=== PATIENT | male | born 1965 | race Caucasian/White ===

== ENCOUNTER 2022-08-19 13:00 | Oncology outpatient (recurring) (ONCR) | payer MEDICARE, SELFPAY ==
[2022-08-05 10:14] LABS: Basophils # 0.1 10^3/uL (0.0-0.1); Basophils % 1.1 %; Eosinophils # 0.1 10^3/uL (0.0-0.8); Eosinophils % 1.3 %; Hematocrit 37.2 % (42.0-52.0); Hemoglobin 11.4 g/dL (11.7-16.6); Lymphocytes # 1.5 10^3/uL (0.8-4.8); Lymphocytes % 31.3 %; Mean Corpuscular HGB Conc 30.6 g/dL (30.0-36.0); Mean Corpuscular Hemoglobin 23.2 pg (28.0-34.0); Mean Corpuscular Volume 75.8 fl (80-94); Mean Platelet Volume 9.6 fL (7.4-10.4); Monocytes # 0.5 10^3/uL (0.2-0.9); Neutrophils # 2.56 10^3/uL (1.8-7.7); Neutrophils % 55.1 %; Nucleated Red Blood Cells % 0 %; Platelet Count 309 10^3/cmm (130-400); Red Blood Count 4.91 10^6/uL (4.1-5.3); Red Cell Distribution Width 16.7 % (12.1-15.1); White Blood Count 4.6 10^3/uL (4.0-10.0)
[2022-08-05 10:40] LABS: Ferritin 9 ng/mL (30-400); Iron 25 ug/dL (59-158); Percent Saturation 6.7 % (20-50); Total Iron Binding Capacity 371 mcg/dl; Unsaturated Iron Binding 346 ug/dL (112-347)
[2022-08-10 12:42] VITALS: BP 145/92; PULSE 82; RESP 16; TEMP 36.3; O2SAT 98
[2022-08-10] MEDS: acetaminophen 325 mg Tablet 650 MG PO (12:55)
[2022-08-10] MEDS: sodium chloride 0.9% 250 ML 75 ML IV (12:55)
[2022-08-10] MEDS: diphenhydrAMINE 50 mg/mL SDV 1mL 25 MG IVP (12:58)
[2022-08-10] MEDS: iron sucrose 200 MG in sodium chloride 0.9% (100 ml) 100 ML 220 MG IV (13:06)
[2022-08-10 14:00] VITALS: BP 121/76; PULSE 71; RESP 16; TEMP 36.4; O2SAT 99
[2022-08-12 13:10] VITALS: BP 106/78; PULSE 78; RESP 18; TEMP 36.6; O2SAT 92
[2022-08-12] MEDS: iron sucrose 200 MG in sodium chloride 0.9% (100 ml) 100 ML 220 MG IV (13:20)
[2022-08-14] MEDS: sodium chloride 0.9% 250 ML 75 ML IV (11:11)
[2022-08-14] MEDS: iron sucrose 200 MG in sodium chloride 0.9% (100 ml) 100 ML 220 MG IV (11:12)
[2022-08-17 13:09] VITALS: BP 129/78; PULSE 70; RESP 16; TEMP 36.7; O2SAT 97
[2022-08-17] MEDS: sodium chloride 0.9% 250 ML 75 ML IV (13:16)
[2022-08-17] MEDS: acetaminophen 325 mg Tablet 650 MG PO (13:19)
[2022-08-17] MEDS: diphenhydrAMINE 50 mg/mL SDV 1mL 25 MG IVP (13:20)
[2022-08-17] MEDS: iron sucrose 200 MG in sodium chloride 0.9% (100 ml) 100 ML 220 MG IV (14:02)
[2022-08-17 14:50] VITALS: BP 145/76; PULSE 74; RESP 16; TEMP 36.7
[2022-08-19 13:30] VITALS: BP 139/80; PULSE 85; RESP 18; TEMP 36.8; O2SAT 98
[2022-08-19] MEDS: sodium chloride 0.9% 250 ML 50 ML IV (14:00)
[2022-08-19] MEDS: acetaminophen 325 mg Tablet 650 MG PO (14:01)
[2022-08-19] MEDS: iron sucrose 200 MG in sodium chloride 0.9% (100 ml) 100 ML 220 MG IV (14:02)
[2022-08-19 14:48] VITALS: BP 126/83; PULSE 72; RESP 16; TEMP 36.5; O2SAT 99
== END 2022-08-30 23:59 | disposition home or self-care (01) ==
PROVIDERS: PCP Internal Medicine Medical Oncology; Visit Provider Internal Medicine Medical Oncology
DX: D50.9 Iron deficiency anemia, unspecified (principal)
CPT/HCPCS: 82728; 83540; 83550; 85025; 96361; 96365; 96374; 96375; 99204; J1200; J1756; J7050

== ENCOUNTER → 2022-09-07 10:27 | Outpatient (BNVA) | payer MEDICARE, SELFPAY | PROVIDERS: PCP Family Medicine; Referring Provider Family Medicine; Visit Provider Anesthesiology Pain Medicine | DX: G89.29 Other chronic pain; M51.16 Intervertebral disc disorders with radiculopathy, lumbar region | CPT/HCPCS: 72110; 99204 ==

== ENCOUNTER 2022-09-16 08:52 | Oncology outpatient (recurring) (ONCR) | payer MEDICARE, SELFPAY ==
[2022-09-16 09:49] LABS: Basophils # 0.1 10^3/uL (0.0-0.1); Basophils % 1.1 %; Eosinophils # 0.1 10^3/uL (0.0-0.8); Eosinophils % 1.8 %; Hematocrit 44.8 % (42.0-52.0); Hemoglobin 14.1 g/dL (11.7-16.6); Lymphocytes # 1.7 10^3/uL (0.8-4.8); Lymphocytes % 37.1 %; Mean Corpuscular HGB Conc 31.5 g/dL (30.0-36.0); Mean Corpuscular Hemoglobin 25.1 pg (28.0-34.0); Mean Corpuscular Volume 79.9 fl (80-94); Monocytes # 0.4 10^3/uL (0.2-0.9); Monocytes % 9.8 %; Neutrophils # 2.24 10^3/uL (1.8-7.7); Neutrophils % 49.8 %; Nucleated Red Blood Cells % 0 %; Platelet Count 288 10^3/cmm (130-400); Red Blood Count 5.61 10^6/uL (4.1-5.3); Red Cell Distribution Width 20.5 % (12.1-15.1); White Blood Count 4.5 10^3/uL (4.0-10.0)
[2022-09-16 11:22] LABS: Alanine Aminotransferase 13 U/L (0-41); Albumin Level 4.4 g/dL (3.5-5.2); Alkaline Phosphatase 91 U/L (40-130); Anion Gap 14.3 (5-19); Aspartate Amino Transferase 14 U/L (0-40); Blood Urea Nitrogen 13 mg/dL (6-20); Calcium 9.1 mg/dL (8.5-10.5); Carbon Dioxide 27 mmol/L (22-29); Chloride 98 mmol/L (98-107); Ferritin 81 ng/mL (30-400); Globulin 2.7 g/dL (1.3-4.6); Glucose 111 mg/dL (65-115); Iron 92 ug/dL (59-158); Osmolality Calculated 281 mOsm/kg (285-295); Percent Saturation 26.9 % (20-50); Potassium 4.3 mmol/L (3.5-5.1); Sodium 135 mmol/L (136-145); Total Bilirubin 0.3 mg/dL (0.15-1.2); Total Iron Binding Capacity 342 mcg/dl; Total Protein 7.1 g/dL (6.6-8.7); Unsaturated Iron Binding 250 ug/dL (112-347)
== END 2022-09-30 23:59 | disposition home or self-care (01) ==
PROVIDERS: PCP Family Medicine; Visit Provider Internal Medicine Medical Oncology
DX: D50.9 Iron deficiency anemia, unspecified (principal); Z79.899 Other long term (current) drug therapy; Z98.84 Bariatric surgery status; G47.00 Insomnia, unspecified
CPT/HCPCS: 80053; 82728; 83540; 83550; 85025; 99214

== ENCOUNTER 2022-09-22 06:57 | Outpatient (CLI) | payer MEDICARE, SELFPAY ==
--- NOTE | 2022-09-22 07:15 | MR_ITS ---
WS: [id number] MRI LUMBAR SPINE NONCONTRAST HISTORY: M54.16 - Radiculopathy, lumbar region COMPARISON: Radiographs 09/07/2022 TECHNIQUE: Sagittal and axial multisequence imaging is submitted. Vertebral body numbering pattern will include 5 nonrib-bearing vertebral bodies. There is nonrib-bear ing vertebral body which will be labeled lumbarized S1. No prior MRIs are available to correlate prio r numbering pattern. This will be important to consider and review if further intervention is perform ed. Moderate increase in the lumbar lordosis. Mild LEFT curvature of the lumbar spine. Disc spaces are na rrowed and desiccated. No fracture. Osteophytic ridging around the vertebral bodies. Subchondral cystic changes along the endplates great est at L2 and L3. Conus terminates normally at L1-2 disc level. L1-L2: Mild annular disc bulging. Very mild foraminal narrowing. L2-L3: 5 mm retrolisthesis of L2 diffuse mild annular disc bulging with facet and ligamentum flavum a rthritis. Large posterior laminectomy defect. Moderate to severe bilateral subarticular recess stenos is with moderate bilateral foraminal stenosis. L3-L4: Osteophytic ridging, annular disc bulging and large posterior laminectomy defect. Marked facet arthritis. No central stenosis. Moderate bilateral subarticular recess and foraminal stenosis. Sligh tly greater stenosis involving the RIGHT foramina. L4-L5: Annular disc bulging with osteophytic ridging. Large posterior laminectomy defect. No central stenosis. Mild bilateral subarticular recess and foraminal stenosis. L5-S1: Mild annular disc bulging and osteophytic ridging. Large posterior laminectomy defect. Mild blanco barticular recess and foraminal stenosis. S1-S2: Sacralized S1 vertebral body. No foraminal stenosis. Large posterior laminectomy defect contin ues into the sacrum. Postsurgical changes are noted in the paravertebral soft tissues and muscles posterior to the lumbar spine. Clumping of the nerve roots in the peripheral the thecal sac beginning at the L3-4 level. MR/MR lumbar spine wo con* [id number] IMPRESSION: 1. Vertebral body numbering pattern includes 5 lumbar vertebral bodies with th e first sacral vertebral body lumbarized. No prior studies to correlate prior n umbering pattern. 2. Advanced spondylitic changes throughout the lumbar spine. 3. Large posterior laminectomy defects extending from L2-3 through S1. 4. Moderate to severe bilateral subarticular recess stenosis and moderate fora luke stenosis at L2-3. 5. Moderate bilateral subarticular recess and foraminal stenosis at L3-4, slig htly greater on the RIGHT. 6. Mild bilateral subarticular recess and foraminal stenosis at L4-5 and L5-S1 . 7. Marked facet joint arthritis throughout the lumbar spine, most significant at L3-4 and L4-5.
== END 2022-09-22 06:58 | disposition home or self-care (01) ==
PROVIDERS: PCP Family Medicine; Visit Provider Anesthesiology Pain Medicine
DX: M54.16 Radiculopathy, lumbar region (principal); M47.816 Spondylosis without myelopathy or radiculopathy, lumbar region; M48.07 Spinal stenosis, lumbosacral region
CPT/HCPCS: 72110; 72148; 99204

== ENCOUNTER → 2022-10-08 09:38 | Outpatient (BNVA) | payer MEDICARE, SELFPAY | PROVIDERS: PCP Family Medicine; Visit Provider Anesthesiology Pain Medicine | DX: G89.29 Other chronic pain (principal); M51.16 Intervertebral disc disorders with radiculopathy, lumbar region | CPT/HCPCS: 99215 ==

== ENCOUNTER → 2022-10-15 09:22 | Outpatient (BNVA) | payer MEDICARE, SELFPAY | PROVIDERS: PCP Family Medicine | DX: E61.1 Iron deficiency (principal) | CPT/HCPCS: 80053; 82728; 83550 ==

== ENCOUNTER → 2022-10-22 08:41 | Outpatient (BNVA) | payer MEDICARE, SELFPAY | PROVIDERS: PCP Family Medicine; Referring Provider Family Medicine; Visit Provider Orthopaedic Surgery | DX: M51.16 Intervertebral disc disorders with radiculopathy, lumbar region (principal) | CPT/HCPCS: 72120; 99204 ==

== ENCOUNTER → 2022-10-23 09:48 | Outpatient (BNVA) | payer MEDICARE, SELFPAY | PROVIDERS: PCP Family Medicine; Visit Provider Nurse Practitioner | DX: D50.8 Other iron deficiency anemias (principal) | CPT/HCPCS: 80053; 82728; 83550; 85025 ==

== ENCOUNTER 2022-11-17 08:48 | Oncology outpatient (recurring) (ONCR) | payer MEDICARE, SELFPAY ==
[2022-11-17 09:06] VITALS: BP 168/93; PULSE 92; RESP 18; TEMP 36.8; O2SAT 96
[2022-11-17 09:21] LABS: Basophils % 0.7 %; Eosinophils # 0.1 10^3/uL (0.0-0.8); Eosinophils % 0.9 %; Hematocrit 44.2 % (42.0-52.0); Hemoglobin 14.5 g/dL (11.7-16.6); Lymphocytes # 1.2 10^3/uL (0.8-4.8); Lymphocytes % 21.2 %; Mean Corpuscular HGB Conc 32.8 g/dL (30.0-36.0); Mean Corpuscular Hemoglobin 27.1 pg (28.0-34.0); Mean Corpuscular Volume 82.6 fl (80-94); Mean Platelet Volume 9.1 fL (7.4-10.4); Monocytes # 0.6 10^3/uL (0.2-0.9); Monocytes % 10.2 %; Neutrophils # 3.66 10^3/uL (1.8-7.7); Neutrophils % 66.8 %; Nucleated Red Blood Cells % 0 %; Platelet Count 287 10^3/cmm (130-400); Red Blood Count 5.35 10^6/uL (4.1-5.3); Red Cell Distribution Width 15.7 % (12.1-15.1); White Blood Count 5.5 10^3/uL (4.0-10.0)
[2022-11-17 09:42] LABS: Alanine Aminotransferase 13 U/L (0-41); Albumin Level 4.1 g/dL (3.5-5.2); Alkaline Phosphatase 102 U/L (40-130); Aspartate Amino Transferase 13 U/L (0-40); Blood Urea Nitrogen 12 mg/dL (6-20); Calcium 9.1 mg/dL (8.5-10.5); Carbon Dioxide 27 mmol/L (22-29); Chloride 100 mmol/L (98-107); Ferritin 22 ng/mL (30-400); Globulin 2.9 g/dL (1.3-4.6); Glucose 124 mg/dL (65-115); Iron 53 ug/dL (59-158); Osmolality Calculated 287 mOsm/kg (285-295); Percent Saturation 15.5 % (20-50); Sodium 138 mmol/L (136-145); Total Bilirubin 0.3 mg/dL (0.15-1.2); Total Iron Binding Capacity 340 mcg/dl; Unsaturated Iron Binding 287 ug/dL (112-347)
[2022-11-17 09:47] LABS: Anion Gap 14.9 (5-19); Potassium 3.9 mmol/L (3.5-5.1)
[2022-11-18 09:12] LABS: Estmated Average Glucose 148; Hemoglobin A1C 6.8 % (4.0-6.0)
== END 2022-11-30 23:59 | disposition home or self-care (01) ==
LOC: ONCMED 08:49
PROVIDERS: PCP Family Medicine; Visit Provider Internal Medicine Medical Oncology
DX: D50.9 Iron deficiency anemia, unspecified (principal); Z79.899 Other long term (current) drug therapy; Z98.84 Bariatric surgery status; K90.89 Other intestinal malabsorption
CPT/HCPCS: 36415; 80053; 82728; 83036; 83540; 83550; 85025; 99214

== ENCOUNTER 2022-12-07 13:30 | Oncology outpatient (recurring) (ONCR) | payer MEDICARE, SELFPAY ==
[2022-12-02 14:52] VITALS: BP 132/87; PULSE 81; RESP 16; TEMP 36.7; O2SAT 99
[2022-12-02] MEDS: iron sucrose 200 MG in sodium chloride 0.9% (100 ml) 100 ML 220 MG IV (15:09)
[2022-12-02 15:53] VITALS: BP 128/77; PULSE 80; TEMP 36.4; O2SAT 98
[2022-12-02 15:59] VITALS: BP 131/77; PULSE 70; TEMP 36.4; O2SAT 99
[2022-12-04 09:42] VITALS: BMI 35.3
[2022-12-04 09:45] VITALS: BP 135/86; PULSE 82; RESP 18; TEMP 36.3; O2SAT 99
[2022-12-04] MEDS: sodium chloride 0.9% 250 ML IV (10:25)
[2022-12-04] MEDS: acetaminophen 325 mg Tablet 650 MG PO (10:25)
[2022-12-04] MEDS: diphenhydrAMINE 25 mg Capsule PO (10:25)
[2022-12-04] MEDS: iron sucrose 200 MG in sodium chloride 0.9% (100 ml) 100 ML 220 MG IV (10:33)
[2022-12-04 11:10] VITALS: BP 144/84; PULSE 71; RESP 18; TEMP 35.9; O2SAT 98
[2022-12-07 13:24] VITALS: BP 132/86; PULSE 94; RESP 18; TEMP 36.4; O2SAT 98
[2022-12-07] MEDS: sodium chloride 0.9% 250 ML 75 ML IV (13:59)
[2022-12-07] MEDS: iron sucrose 200 MG in sodium chloride 0.9% (100 ml) 100 ML 220 MG IV (14:02)
[2022-12-07 14:43] VITALS: BP 129/79; PULSE 86; RESP 18; TEMP 36.7; O2SAT 98
== END 2022-12-31 23:59 | disposition home or self-care (01) ==
PROVIDERS: PCP Family Medicine; Visit Provider Internal Medicine Medical Oncology
DX: D50.8 Other iron deficiency anemias (principal)
CPT/HCPCS: 96365; J1756; J7050

== ENCOUNTER 2022-12-09 14:16 | Inpatient (IN) | payer MEDICARE, SELFPAY ==
[2022-12-08 08:45] VITALS: BMI 35.2
[2022-12-09] VITALS (16 sets, daily range): BP systolic 84–145; BP diastolic 62–94; PULSE 81–103; RESP 10–21; TEMP 36.1–36.4; O2SAT 89–99
--- NOTE | 2022-12-09 | XR_ITS ---
WS: [id number]-ARM RADIOGRAPHS LUMBAR SPINE; 406 IMAGES HISTORY: SURGICAL PROCEDURE COMPARISON: None available. Imaging submitted is nondiagnostic. Intraoperative imaging during lumbar spine fusion. IMPRESSION: Intraoperative imaging provided during lumbar fusion.
[2022-12-09] MEDS: sodium chloride 0.9% 1,000 ML 30 ML IV (11:53)
--- NOTE | 2022-12-09 12:37 | ANES.PREANE2 ---
Pre-Anesthetic Assessment Height/Weight: Height 1.85 m Weight 121.109 kg Temp Pulse Resp BP Pulse Ox O2 Del Method 97.6 F 81 18 145/94 98 Room Air 12/09/22 11:38 12/09/22 11:38 12/09/22 11:38 12/09/22 11:38 12/09/22 11:38 12/09/22 11:38 Preop Diagnosis: DDD lumbar Operation Date: 12/09/22 13:20 Proposed Procedures p T10- Pelvis fusion L5/S1 PLIF open SI fusion:[id number] X 2,[id number] X 3,[id number],74832,33150,24602,M54.9,G89.29(Not Applicable) - Keron Monzon, Familial anesthetic complications: None Was Beta Anup taken within 24 hours: N/A Was Clonidine taken within 24 hours: N/A Last intake: Intake Last Liquid Date 12/08/22 Last Liquid Time 22:00 Last Solid Date 12/08/22 Last Solid Time 22:00 Social No alcohol and No tobacco Exam alert, oriented x 3, clear to auscultation bilaterally and regular rate & rhythm Airway Mallampati: Class III Dentition: chipped Pulmonary Sleep Apnea CV/HEM Anemia and Hypertension GI hx gastric bypass Metabolic Diabetes Mellitus Anesthetic Plan ASA status: 3 Anesthesia: General Risk of > 500 ml blood loss (7ml/kg in children): Yes, adequate IV access and fluids planned Medications/Allergies Home Medications Medication Instructions Recorded Confirmed Last Taken Type bupropion HCl 300 mg 24 hr tablet, 300 mg PO QAM 08/05/22 12/09/22 12/08/22 History extended release cyanocobalamin (vitamin B-12) 1,000 mcg IM .COMPLEX 08/05/22 12/08/22 11/28/22 History 1,000 mcg/mL injection solution (Dodex) duloxetine 60 mg capsule,delayed 60 mg PO DAILY 08/05/22 12/08/22 12/07/22 History release sprinkle furosemide 20 mg tablet 20 mg PO DAILY 08/05/22 12/08/22 12/07/22 History metformin 1,000 mg tablet 1,000 mg PO BID 08/05/22 12/09/22 12/08/22 08:00 History rosuvastatin 10 mg tablet 10 mg PO DAILY 08/05/22 12/09/2223 History verapamil 180 mg 24 hr 180 mg PO DAILY 08/05/22 12/09/22 12/08/22 History capsule,extended release dflrrjct-qmctgypo-locp 45 mg-folic 1 cap PO DAILY 08/13/22 12/08/22 11/28/22 History acid 800 mcg-vit K 120 mcg capsule (Bariatric Multivitamins) trazodone 50 mg tablet 100 mg PO DAILY #60 tabs 09/16/22 12/09/22 12/08/22 Rx valsartan 320 1 tab PO DAILY 11/25/22 12/09/22 12/08/22 History mg-hydrochlorothiazide 12.5 mg tablet Allergies Allergy/AdvReac Type Severity Reaction Status Date / Time NSAIDS (Non-Steroidal Allergy Unknown Verified 11/25/22 13:40 Anti-Inflamma Penicillins Allergy ALGY-Swell Verified 11/25/22 13:40 Lip/Tongue/Throat Current Medications Generic Name Dose Route Start Last Admin Trade Name Freq PRN Reason Stop Dose Admin Sodium Chloride 1,000 mls @ 30 mls/hr 12/09/22 11:30 12/09/22 11:53 Sodium Chloride 0.9% IV 12/10/22 11:29 30 mls/hr .Q24H BRYAN Administration PFSH Anesthesia Medical History (Updated 11/25/22 @ 13:50 by Abhi Davis NP) Anxiety Anxiety and depression Chronic back pain Degenerative arthritis Degenerative joint disease of spine Essential hypertension History of anemia due to vitamin B12 deficiency History of bariatric surgery History of iron deficiency History of meningioma History of nephrolithiasis Hx of renal artery stenosis Hypertension Insomnia Moderate recurrent major depression Obstructive sleep apnea Tinnitus Type 2 diabetes mellitus Surgical History History of back surgery x 2 - Lower lumbar History of bilateral knee replacement History of cystoscopy 05/26/17 History of Rey-en-Y gastric bypass Hx of colonoscopy with polypectomy 09/26/15, 11/11/17, Hx of excision of lamina of lumbar vertebra for decompression of spinal cord Hx of lithotripsy 05/26/17 S/p bilateral carpal tunnel release Family History Father Cancer esophageal Mother Cancer Lung Grandfather Cancer Maternal-prostate Other Diabetes Hypertension Denies family history of CAD (coronary artery disease) Clotting disorder Dementia Hyperlipidemia Psychiatric illness Chronic kidney disease (CKD) Suicide Anesthesia complication Bleeding disorder Lung disease Stroke Social History Smoking and tobacco status: former smoker Quit status (tobacco): has quit using tobacco Former quit date comment: smoked x 20 years Alcohol intake: former Former alcohol use details: Prior history of heavy alcohol use. He quit drinking at least 30 years ago Substance/Drug Use: never Lives independently: Yes Marital status: Number of children: 3 Current occupational status: disabled Special erika needs: No Agree to transfusion: Yes Data Anesthesia Cardiac Studies: No Data to Display
[2022-12-09] MEDS: vancomycin 1,000 MG in sodium chloride 0.9% 250 ML 250 MG IV (12:57)
[2022-12-09] MEDS: midazolam 1 mg/mL INJ 2 mL 2 MG IVP (13:20)
--- NOTE | 2022-12-09 14:03 | PM.HP ---
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 He states he also weighed over 400+ and wend to get out of a car and was unable to stand up straight. Following this he underwent a diskectomy. He Chief Complaint: low back pain Onset: years Duration: Characteristics: poor balance, burning Severity: /10 Location: low back Radiating symptoms: posterior lower extremities Aggravating factors: standing or sitting for long periods Alleviating factors: leaning forward, rest, Neuro deficits: denies numbness, tingling, weakness, incontinence of bowel/bladder, saddle anesthesia. Prior tx: diskectomy Review of Systems General: Reports: 10 or more systems reviewed and unremarkable except in HPI and below Const: Denies: fever(s) or chills Eyes: Denies: change in vision or blurry vision ENMT: Reports: tinnitus; Denies: hoarseness Card: Denies: chest pain, palpitations or dyspnea on exertion Resp: Denies: dyspnea, productive cough, non-productive cough or wheezing GI: Denies: abdominal pain, nausea, vomiting, diarrhea or constipation Musc: Reports: back pain; Denies: neck pain or joint pain Skin/Breast: Denies: rash or new lesions Neuro: Denies: headache(s), numbness in extremities or weakness in extremities Psych: Reports: anxiety; Denies: depression Medications/Allergies Home Medications Medication Instructions Recorded Confirmed Last Taken Type bupropion HCl 300 mg 24 hr tablet, 300 mg PO QAM 08/05/22 12/09/22 12/08/22 History extended release cyanocobalamin (vitamin B-12) 1,000 mcg IM .COMPLEX 08/05/22 12/08/22 11/28/22 History 1,000 mcg/mL injection solution (Dodex) duloxetine 60 mg capsule,delayed 60 mg PO DAILY 08/05/22 12/08/22 12/07/22 History release sprinkle furosemide 20 mg tablet 20 mg PO DAILY 08/05/22 12/08/22 12/07/22 History metformin 1,000 mg tablet 1,000 mg PO BID 08/05/22 12/09/22 12/08/22 08:00 History rosuvastatin 10 mg tablet 10 mg PO DAILY 08/05/22 12/09/22 12/08/22 History verapamil 180 mg 24 hr 180 mg PO DAILY 08/05/22 12/09/22 12/08/22 History capsule,extended release ngvhrufd-kzhhhqif-zvdn 45 mg-folic 1 cap PO DAILY 08/13/22 12/08/22 11/28/22 History acid 800 mcg-vit K 120 mcg capsule (Bariatric Multivitamins) trazodone 50 mg tablet 100 mg PO DAILY #60 tabs 09/16/22 12/09/22 12/08/22 Rx valsartan 320 1 tab PO DAILY 11/25/22 12/09/22 12/08/22 History mg-hydrochlorothiazide 12.5 mg tablet Allergies Allergy/AdvReac Type Severity Reaction Status Date / Time NSAIDS (Non-Steroidal Allergy Unknown Verified 11/25/22 13:40 Anti-Inflamma Penicillins Allergy ALGY-Swell Verified 11/25/22 13:40 Lip/Tongue/Throat PFSH Acute PFSH: Medical History (Updated 11/25/22 @ 13:50 by Abhi Davis NP) Anxiety Anxiety and depression Chronic back pain Degenerative arthritis Degenerative joint disease of spine Essential hypertension History of anemia due to vitamin B12 deficiency History of bariatric surgery History of iron deficiency History of meningioma History of nephrolithiasis Hx of renal artery stenosis Hypertension Insomnia Moderate recurrent major depression Obstructive sleep apnea Tinnitus Type 2 diabetes mellitus Surgical History History of back surgery x 2 - Lower lumbar History of bilateral knee replacement History of cystoscopy 05/26/17 History of Rey-en-Y gastric bypass Hx of colonoscopy with polypectomy 09/26/15, 11/11/17, Hx of excision of lamina of lumbar vertebra for decompression of spinal cord Hx of lithotripsy 05/26/17 S/p bilateral carpal tunnel release Family History Father Cancer esophageal Mother Cancer Lung Grandfather Cancer Maternal-prostate Other Diabetes Hypertension Denies family history of CAD (coronary artery disease) Clotting disorder Dementia Hyperlipidemia Psychiatric illness Chronic kidney disease (CKD) Suicide Anesthesia complication Bleeding disorder Lung disease Stroke Social History Smoking and tobacco status: former smoker Quit status (tobacco): has quit using tobacco Former quit date comment: smoked x 20 years Alcohol intake: former Former alcohol use details: Prior history of heavy alcohol use. He quit drinking at least 30 years ago Substance/Drug Use: never Lives independently: Yes Marital status: Number of children: 3 Current occupational status: disabled Special erika needs: No Agree to transfusion: Yes Vitals/I&O/Wt Last Vital Signs Temp 97.6 F 12/09/22 11:38 Pulse 81 12/09/22 11:38 Resp 18 12/09/22 11:38 BP 145/94 12/09/22 11:38 Pulse Ox 98 12/09/22 11:38 O2 Del Method Room Air 12/09/22 11:38 Weight last 48 hrs Weight 267 lb Physical Exam Narrative: EXAM NARRATIVE: CONSTITUTIONAL: T his is a normal ap pearing and in no acute distress. PS YCH: The patient i s oriented to pers on, place and time . SKIN: The skin i s of normal color and texture. NEURO : Patient is neuro vascularly intact. MUSCULOSKELETAL / EXTREMITIES: A&P Assessment and plan (1) Lumbar disc disease with radiculopathy: [id number] fusion Attestations Medical Necessity Statement*: failed conservative tx Coding Level of Care Code Acute Code for [facility] Fwd Diagnoses Lumbar disc disease with radiculopathy M51.16
[2022-12-09] MEDS: lidocaine-epi 1% 20 mL INJ INJECTION (14:55)
[2022-12-09 16:10] LABS: ABG PCO2 41.4 mmHg (35-45); Alveolar-Arterial Oxygen Gradi 13.3 mmHg (5-10); Arterial Blood Gas Hematocrit 38.6 % (42-52); Base Excess ABG 0.6 mmol/L (-2.0-2.0); Blood Gas Sample Type Arterial; Carboxyhemoglobin 0.8 %THgb (0.4-20.1); HCO3 ABG 25.6 mmol/L (22-26); HGB O2 Sat 97.7 % (95-100); Ionized Calcium Level - ABG 1.1 mmol/L (1.1-1.4); Methemoglobin 0.6 % (0.4-1.5); Oxygen Device VENT; Oxygen Saturation ABG 99.1; Potassium Level - ABG 4.2 mmol/L (3.5-5.0); Total Hemoglobin 12.6 g/dL (14-18)
[2022-12-09] MEDS: vancomycin 1,000 MG SDV 1000 MG XX (16:23)
[2022-12-09] MEDS: heparin, porcine 1,000 unit/mL INJ 10 mL 4000 UNIT INJECTION (16:50)
[2022-12-09 17:09] LABS: Blood Gas Sample Site ALINE
--- NOTE | 2022-12-09 18:04 | PM.OP ---
Operative Report Date of procedure: December 09, 2022 Pre-op diagnosis: Preop Diagnosis degenerative disk disease; failed back surgery Post-op diagnosis: same Surgeon: Keron Monzon Asset Protection Agent: Tigre Pinto Estimated blood loss (mL): 1,500 Procedure: 1.? T10 - pelvis posterior spine fusion 2.? T10 - S1 posterior instrumentation 3. Lumbopelvic instrumentation 4. Right open sacral iliac fusion 5. Left open sacral iliac fusion 6.? use of computer navigation sterotactic for spine 7.? bone marrow aspiration right iliac crest 8.? use of allograft Patient was brought to the operative suite after undergoing anesthesia was placed in the prone position.? All areas impingement well-padded.? Patient was then prepped and draped in normal sterile fashion.? Skin incision made from T10 down to S1.? Subperiosteal dissection was made out to the transverse processes from T10-L5.? And out to the sacral ala.? This was done bilaterally. There was a significant amount of scar tissue. The dissection on the right side around the right L1-2 facet during dissection there was a small dural tear and the scar tissue. At the end of the case this was repaired by suturing the scar tissue back together and placing a fat graft over it. At the end a Valsalva maneuver was made and there was no evidence of any leak. DuraGen was placed over this as well. Attention was then brought to drawing the bone marrow aspirate from the right iliac crest.? This was done using the bone marrow aspiration kit.? The awl was inserted and then every millimeter the needle was pulled out bone marrow was aspirated 20 cc were used this was then mixed with the ostial amp bone graft that was used at the end of the case. Next attention was brought to attaching the computer navigation.? This was done by placing 2 pins in the right iliac crest.? These pins will be later removed at the end of the case.? The fiducial was attached to these 2 pins.? The C-arm was then brought in and spun around the patient.? The information from serum was then loaded in the computer for later use with computer navigation. Next attention was brought to placing the screws.? This was done by using the gearshift which was linked to the computer navigation followed by the pedicle feeler.? Followed by placing the screw length to the computer navigation.? Screws were placed screws were placed at T10 bilaterally, T11 bilaterally, T12 bilaterally, L1 bilaterally, L2 bilaterally, L3 bilaterally, L4 bilaterally, L5 bilaterally, and S1. Next attention was brought to placing the iliac screws. This again was done with computer navigation using the Poll Everywhere link under computer navigation was passed through the sacral ala into the SI joint and into the iliac crest. This was done bilaterally. Next the pedicle feeler was used. Followed by using the computer navigated tap. Followed by placement of the 100 mm screw linked to computer navigation. Screws were placed bilaterally. Next attention was brought to doing the open SI joint fusion. This was done by using the gearshift probe to cross the SI joint above the iliac screw. Once across the joint than the wire was placed in this hole. And then the drill was used. Bone graft was then placed into the hole and in the SI joint. And then the sacroiliac screw was placed across the joint. This was done on both the right and the left side. Next attention was brought to placing the rods.? The rods were attached from T10-S1. The cindy was also attached to the iliac screws attaching the lumbopelvic fixation.The rods were locked distally and distracted in order to facilitate reducing the fracture.? Rods were all locked into position with the setscrews.? This was done bilaterally. Next tension was brought to decorticating the transverse processes of T10T11 T12-L1 L2 L3-L4-L5 and sacral ala bilaterally.? Then all ostial amp bone graft was then packed into the gutters bilaterally.? The drain was placed and wound was closed in layered fashion with 0 Vicryl closing the thoracolumbar fascia 2-0 Vicryl closing the skin and Monocryl closing the skin.? Sterile dressings were applied patient was transferred to the PACU in stable condition.
--- NOTE | 2022-12-09 18:53 | ANE.PACU2 ---
Inpatient post-anesthesia follow up: Airway intact: Yes Vital signs: Temperature 97.0 F Pulse Rate 89 Respiratory Rate 17 Blood Pressure 107/66 Pulse Oximetry 98 Oxygen Delivery Me thod Simple Mask Oxygen Flow Rate 6 Fraction of Inspir ed Oxygen Hydration adequate: Yes Nausea and vomiting: No Pain level: 1 Mental status: Baseline
[2022-12-09] MEDS: HYDROmorphone 1 mg/mL INJ 1 mL 0.5 MG IVP (19:10)
[2022-12-09] MEDS: lactated ringers 1,000 ML 90 ML IV (19:57)
[2022-12-09] MEDS: oxyCODONE 20 mg ER (12 HR) Tablet PO (20:18)
[2022-12-09] MEDS: docusate sodium 100 mg Capsule PO (20:18)
[2022-12-09] MEDS: ondansetron 2 mg/ML SDV 2 mL 4 MG IVP (20:32)
[2022-12-09] MEDS: ketorolac 30 mg/mL INJ IVP (20:32)
[2022-12-09 21:40] LABS: Glomerular Filtration Rate 99.6 mL/min (90-130)
[2022-12-10] VITALS (12 sets, daily range): BP systolic 105–131; BP diastolic 67–79; PULSE 93–116; RESP 16–20; TEMP 36.4–37.5; O2SAT 91–96
[2022-12-10] MEDS: acetaminophen 325 mg Tablet 650 MG PO ×2 (00:07→20:11)
[2022-12-10] MEDS: vancomycin 1,750 MG/350 ML PIGGYBACK 233.33 MG IV (00:08)
[2022-12-10] MEDS: morphine 4 mg/mL SDV 1 mL 2 MG IVP (00:24)
[2022-12-10] MEDS: HYDROcodone-acetaminophen 10-325 mg Tablet PO ×3 (02:17→15:30)
[2022-12-10 05:00] LABS: Hematocrit 32.7 % (42.0-52.0); Hemoglobin 10.7 g/dL (11.7-16.6)
[2022-12-10] MEDS: buPROPion XL (24 HR) 300 mg Tablet PO (05:16)
[2022-12-10 05:32] LABS: Glucose Point of Care 119 mg/dL (70-110)
[2022-12-10] MEDS: ondansetron 2 mg/ML SDV 2 mL 4 MG IVP (05:34)
[2022-12-10] MEDS: lactated ringers 1,000 ML 90 ML IV ×2 (07:18→18:47)
--- NOTE | 2022-12-10 07:39 | PM.PN ---
Subjective Subjective: POD 1 Patient standing in the room as staff is changing his linens. He reports back pain. Reports mild headache. Denies chest pain or shortness of breath. Vitals/I&O/Wt Last Vital Signs Temp 97.9 F 12/10/22 06:00 Pulse 102 H 12/10/22 06:00 Resp 17 12/10/22 06:00 BP 105/67 12/10/22 06:00 Pulse Ox 96 12/10/22 06:00 O2 Del Method Room Air 12/10/22 06:00 O2 Flow Rate 2 12/09/22 21:37 12/09/22 12/10/22 12/10/22 22:59 06:59 14:59 Intake Total 1407.5 / 1657.5 830 / 2487.5 1000 / 1000 Output Total 2960 / 2960 610 / 3570 Balance -1552.5 / -1302.5 220 / -1082.5 1000 / 1000 Weight last 48 hrs Weight 267 lb Physical Exam Narrative: Patient presents alert and oriented x3 with a good general appearance normal mood and affect. Normal coordination normal stability. Mild tenderness around the incisional site with the incision appear to be clean and dry with Hemovac intact. No signs of erythema or drainage. No signs of infection. Patient denies any fevers or chills. 5/5 motor strength both lower extremities with negative straight leg raise bilaterally. Calves are supple no medial thigh tenderness. Pulses are 2+ at the dorsalis pedis and posterior tibial region. Good capillary refill throughout normal sensation light touch both lower extremities. Urinary Catheter Management: Leyva Latex: Cath Placed During This Visit: yes Reason for Continuing Indwelling Catheter: Perioperative Use in Selected Surgeries Urinary Catheter Date of Insertion: 12/09/22 Urinary Catheter Time of Insertion: 14:15 Data 12/10/22 04:50 12/09/22 21:06 A&P Assessment and plan (1) S/P spinal fusion: Reported 1020 mL output from Hemovac therefore will remove the suction from the Hemovac take to gravity. Due to the incidental durotomy we will keep him flat and hold physical therapy today. Encourage incentive spirometer for pulmonary toilet. Repeat H&H in the AM. (2) Incidental durotomy: Attestations Medical Necessity Statement*: Hold until medically stable Coding Level of Care Code Acute Code for [facility] Fwd Diagnoses S/P spinal fusion Z98.1 Incidental durotomy G97.41
[2022-12-10] MEDS: duloxetine 60 mg Capsule PO (09:36)
[2022-12-10] MEDS: FUROsemide 20 mg Tablet PO (09:36)
[2022-12-10] MEDS: verapamil ER 180 mg Tablet PO (09:36)
[2022-12-10] MEDS: metformin 500 mg Tablet 1000 MG PO ×2 (09:36→17:56)
[2022-12-10] MEDS: atorvastatin 40 mg Tablet PO (09:36)
[2022-12-10] MEDS: hydroCHLOROthiazide 25 mg Tablet 12.5 MG PO (09:37)
[2022-12-10] MEDS: docusate sodium 100 mg Capsule PO ×2 (09:37→17:56)
[2022-12-10] MEDS: losartan 50 mg Tablet 100 MG PO (09:38)
[2022-12-10] MEDS: ketorolac 30 mg/mL INJ IVP (09:41)
[2022-12-10] MEDS: oxyCODONE 20 mg ER (12 HR) Tablet PO ×2 (10:36→20:11)
--- NOTE | 2022-12-10 10:48 | PC.CHAP ---
Pastoral Care Encounter/Spiritual Assessment Type of Contact [] Declined aircraft avionics technician visit [] Patient/Family/Request visit [] Outpatient visit [] Follow-up visit [] Physician referral [] Code/Alert [x] Routine visit [] Staff referral [] Actively dying [] Patient sleeping [] Family support [] [] Out of room [] Palliative care [] [x] Receiving care in room [] Pre-surgical visit [] Trauma [] Long length of stay [] ICU visit [] Other: Relational/Emotional Strength [x] Patient feels connected with others/family/visitors/staff [] Distress [] Loneliness/isolation [] Abandonment Spirituality of Patient [x] Person of Yeimi [] Attends Restorationism of their Yeimi [x] Believes in Prayer [] Reads Bible or Restorationist materials [] There are Spiritual issues to be addressed Steam And Power Superintendent Interventions [x] Prayer [x] Active listening [x] Non-anxious presence [x] Spiritual/emotional support [] Crisis/trauma care [x] Spiritual counseling [] Bereavement support [] Provided bereavement packet [] Provided Bible/devotional materials [] Provided toy/stuffed animal, coloring book to patient or family member [] Provided Communion [] Anointing/[place] [] Salvation [x] Completed spiritual assessment [] Other: Impact on Illness or Injury [] Angry [] Fearful [] Anxious [] Often cries [] Exhaustion [] Unable to work [] Unable to attend adventism [] Unable to walk/stand [] Unable to read [] Unable to drive [] Unable to eat/drink [] Unable to sleep [] Unable to be with family [] Patient intubated [] Other: Summary surgery on neck had some problems back to e care of breathing because of surgery +1 well go home at some point Time spent with patient 10 mins
[2022-12-10] MEDS: vancomycin 1,750 MG/350 ML PIGGYBACK 175 MG IV (13:55)
[2022-12-10] MEDS: trazodone 50 mg Tablet 100 MG PO (20:11)
[2022-12-11] VITALS (13 sets, daily range): BP systolic 102–130; BP diastolic 63–85; PULSE 88–131; RESP 16–18; TEMP 36.6–37.8; O2SAT 90–96
[2022-12-11] MEDS: morphine 4 mg/mL SDV 1 mL 2 MG IVP (02:31)
[2022-12-11] MEDS: buPROPion XL (24 HR) 300 mg Tablet PO (06:16)
[2022-12-11 06:32] LABS: Hematocrit 27.8 % (42.0-52.0); Hemoglobin 8.9 g/dL (11.7-16.6)
[2022-12-11] MEDS: lactated ringers 1,000 ML 90 ML IV ×2 (06:45→18:27)
--- NOTE | 2022-12-11 07:08 | PM.PN ---
Subjective Subjective: Patient is postop day #2 from a T10 to pelvis fusion. Pain is controlled. Patient said he had a headache last night but is not any different than the headaches he was having before surgery. At this point we will get him up with physical therapy. Vitals/I&O/Wt Last Vital Signs Temp 100.0 F H 12/11/22 04:00 Pulse 115 H 12/11/22 04:00 Resp 16 12/11/22 04:00 BP 120/75 12/11/22 04:00 Pulse Ox 92 12/11/22 04:00 O2 Del Method Room Air 12/11/22 04:00 O2 Flow Rate 2 12/09/22 21:37 12/10/22 12/11/22 12/11/22 22:59 06:59 14:59 Intake Total 1350 / 3070 1000 / 4070 Output Total 1075 / 1950 550 / 2500 Balance 275 / 1120 450 / 1570 Physical Exam Narrative: Patient sitting up comfortably in bed. Patient had 200 cc out of drain but were pulled today. Urinary Catheter Management: Leyva Latex: Cath Placed During This Visit: yes Reason for Continuing Indwelling Catheter: Perioperative Use in Selected Surgeries Urinary Catheter Date of Insertion: 12/09/22 Urinary Catheter Time of Insertion: 14:15 Data 12/11/22 05:40 12/09/22 21:06 A&P Assessment and plan (1) S/P spinal fusion: Patient doing well resting in bed. Will get him up with physical therapy if he does well we will plan on discharging him this afternoon. Will see how he does with physical therapy. Attestations Medical Necessity Statement*: pending eval from PT Coding Level of Care Code Acute Code for [facility] Fwd Diagnoses S/P spinal fusion Z98.1
[2022-12-11] MEDS: ketorolac 30 mg/mL INJ IVP (07:35)
[2022-12-11] MEDS: HYDROcodone-acetaminophen 10-325 mg Tablet PO ×2 (07:36→14:46)
[2022-12-11] MEDS: ondansetron 2 mg/ML SDV 2 mL 4 MG IVP (07:36)
--- NOTE | 2022-12-11 09:13 | PC.NURSE ---
Hemovac pulled anf pt tolerated it well. Kate bullock applied.
[2022-12-11] MEDS: losartan 50 mg Tablet 100 MG PO (09:56)
[2022-12-11] MEDS: FUROsemide 20 mg Tablet PO (09:57)
[2022-12-11] MEDS: hydroCHLOROthiazide 25 mg Tablet 12.5 MG PO (09:57)
[2022-12-11] MEDS: metformin 500 mg Tablet 1000 MG PO ×2 (09:57→17:21)
[2022-12-11] MEDS: docusate sodium 100 mg Capsule PO ×2 (09:57→17:21)
[2022-12-11] MEDS: duloxetine 60 mg Capsule PO (09:58)
[2022-12-11] MEDS: atorvastatin 40 mg Tablet PO (09:58)
[2022-12-11] MEDS: oxyCODONE 20 mg ER (12 HR) Tablet PO ×2 (10:04→21:12)
[2022-12-11] MEDS: verapamil ER 180 mg Tablet PO (10:04)
[2022-12-11] MEDS: alum-mag-hydroxide-sime 30 mL UDC PO (14:20)
[2022-12-11] MEDS: trazodone 50 mg Tablet 100 MG PO (21:12)
[2022-12-11 21:31] LABS: Glucose Point of Care 115 mg/dL (70-110)
[2022-12-12 04:00] VITALS: BP 116/69; PULSE 114; RESP 17; TEMP 37.4; O2SAT 90
[2022-12-12 04:20] VITALS: RESP 16
[2022-12-12] MEDS: morphine 4 mg/mL SDV 1 mL 2 MG IVP (04:20)
[2022-12-12] MEDS: buPROPion XL (24 HR) 300 mg Tablet PO (05:41)
[2022-12-12] MEDS: lactated ringers 1,000 ML 90 ML IV (05:41)
[2022-12-12 06:55] LABS: Glucose Point of Care 118 mg/dL (70-110)
[2022-12-12 08:00] VITALS: BP 143/67; PULSE 122; RESP 18; TEMP 37.2; O2SAT 94
[2022-12-12] MEDS: verapamil ER 180 mg Tablet PO (08:55)
[2022-12-12] MEDS: metformin 500 mg Tablet 1000 MG PO (08:55)
[2022-12-12] MEDS: FUROsemide 20 mg Tablet PO (08:55)
[2022-12-12] MEDS: atorvastatin 40 mg Tablet PO (08:55)
[2022-12-12] MEDS: duloxetine 60 mg Capsule PO (08:55)
[2022-12-12 08:56] VITALS: RESP 18
[2022-12-12] MEDS: hydroCHLOROthiazide 25 mg Tablet 12.5 MG PO (08:56)
[2022-12-12] MEDS: oxyCODONE 20 mg ER (12 HR) Tablet PO (08:56)
--- NOTE | 2022-12-12 09:51 | P.DS_ITS ---
Discharge Providers Date of Admission: 12/09/22 14:16 Date of Discharge: December 12, 2022 Attending Provider at Admission: Keron Monzon DO Attending Provider at Discharge: Keron Monzon DO Primary Care Provider: Jimmy Quinteros MD Diagnoses at Discharge Discharge Diagnosis (1) S/P spinal fusion: Status: Acute Reason for Visit Reason for Visit: M54.9, G89.29 Physical Exam Urinary Catheter Management: Leyva Latex: Cath Placed During This Visit: yes, but has since been removed by the nurse Reason for Continuing Indwelling Catheter: Decision to DC Catheter Urinary Catheter Date of Insertion: 12/09/22 Urinary Catheter Time of Insertion: 14:15 Date Urinary Catheter Removed: 12/11/22 Time Urinary Catheter Discontinued: 08:00 Discharge Data Studies Completed and Pending Pending at discharge Category Date Time Status XR lumbar spine 2-3V* 19550 Routine Exams 12/09/22 Taken Laboratory Results Hgb 8.9 g/dL (11.7-16.6) L 12/11/22 05:40 Hct 27.8 % (42.0-52.0) L 12/11/22 05:40 Specimen Type Arterial 12/09/22 15:59 Sample Site [place] 12/09/22 15:59 ABG pH 7.40 (7.35-7.45) 12/09/22 15:59 ABG pCO2 41.4 mmHg (35-45) 12/09/22 15:59 ABG pO2 197.0 mmHg (80.0-100.0) H 12/09/22 15:59 ABG HCO3 25.6 mmol/L (22-26) 12/09/22 15:59 ABG O2 Saturation 99.1 12/09/22 15:59 ABG Base Excess 0.6 mmol/L (-2.0-2.0) 12/09/22 15:59 Thai Test N/a 12/09/22 15:59 A-a O2 Gradient 13.3 mmHg (5-10) H 12/09/22 15:59 Hematocrit 38.6 % (42-52) L 12/09/22 15:59 Hgb O2 Saturation 97.7 % (95-100) 12/09/22 15:59 Carboxyhemoglobin 0.8 %THgb (0.4-20.1) 12/09/22 15:59 Methemoglobin 0.6 % (0.4-1.5) 12/09/22 15:59 Total Hemoglobin 12.6 g/dL (14-18) L 12/09/22 15:59 Sodium 140.0 mmol/L (131-143) 12/09/22 15:59 Potassium 4.2 mmol/L (3.5-5.0) 12/09/22 15:59 Glucose 125.0 mg/dL (70-115) H 12/09/22 15:59 Ionized Calcium 1.1 mmol/L (1.1-1.4) 12/09/22 15:59 O2 Delivery Device Vent 12/09/22 15:59 FiO2 50.0 % 12/09/22 15:59 Registered Radiation Therapist ID Kunal 12/09/22 15:59 Creatinine 0.8 mg/dL (0.7-1.2) 12/09/22 21:06 GFR Calculation 99.6 mL/min (90-130) 12/09/22 21:06 POC Glucose 118 mg/dL (70-110) H 12/12/22 06:49 Blood Type O Positive 12/09/22 11:55 Rho(D) Type Positive 12/09/22 11:55 Antibody Screen Negative 12/09/22 11:55 Vitals Last Vital Signs Temp 98.9 F 12/12/22 08:00 Pulse 122 H 12/12/22 08:00 Resp 18 12/12/22 08:56 BP 143/67 12/12/22 08:00 Pulse Ox 94 12/12/22 08:00 O2 Del Method Room Air 12/12/22 04:00 O2 Flow Rate 2 12/09/22 21:37 Discharge Plan Discharge Patient Disposition: Home Condition: Stable Prescriptions: New hydrocodone-acetaminophen 5-325 mg tablet 1 - 2 tab PO .Q4-6H Qty: 40 0RF Continued trazodone 50 mg tablet 100 mg PO DAILY Qty: 60 4RF Rx Instructions: may titrate up to 2 tabs at hs verapamil 180 mg capsule,ext rel. pellets 24 hr 180 mg PO DAILY bupropion HCl 300 mg tablet extended release 24 hr 300 mg PO QAM cyanocobalamin (vitamin B-12) [Dodex] 1,000 mcg/mL solution 1,000 mcg IM .COMPLEX Rx Instructions: 1,000 mcg intramuscularly every 2 weeks; metformin 1,000 mg tablet 1,000 mg PO BID rosuvastatin 10 mg tablet 10 mg PO DAILY duloxetine 60 mg capsule, delayed rel sprinkle 60 mg PO DAILY furosemide 20 mg tablet 20 mg PO DAILY Bariatric Multivitamins 45 mg iron- 800 mcg-120 mcg capsule 1 cap PO DAILY valsartan-hydrochlorothiazide 320-12.5 mg tablet 1 tab PO DAILY Discharge Orders: Discharge Order (Routine); Ordered 12/12/22 Ordered By: Keron Monzon Discharge Diet: Advance as tolerated Discharge Activity: Limit activity as instructed Patient Instructions: Opioid Safety Activity Restrictions/Additional Instructions: Thank you for [facility] for your care! The following is a list of instructions, from your provider, to follow upon your discharge to ensure you have the optimal recovery from your recent injury orsurgery. Follow-up care is a berumen part of your treatment and safety. Be sure to make and go to all appointments, and call your doctor if you are having problems. If you do not already have a follow-up appointment made, call Dr. Monzon office in the next 1-3 days to make follow up appointment for 1 weeks at [phone]. It is also a good idea to know your test results and keep a list of the medicines you take. Medications will be prescribed for you at your provider's discretion. These medications are to be used as instructed; if they are taken more often that prescribed they will not be refilled early and in most cases will not be refilled at all. > When a refill is needed,you should contact trent marienlli 2-3 business days before your prescription runs out. Medications will NOT be refilled by science consultant providers after hours! > Many pain medications contain Tylenol (Acetaminophen). Do not consume more than 4,000 mg of Tylenol per day in total with any combination ofmedications. > Pain medications can cause constipation. Please use an over the counter stool softener as directed, while taking pain medications. Consulty our local pharmacist with questions or recommendations on stool softeners. If constipation persists, contact our office or your primary care provider. > While under our care,you are not to receive pain medications or other controlled substances from any other provider unless our office is notified and approves. Any attempts to do so will result in refusal to prescribe any further pain medications and possible dismissal from our practice. ? Your wound and/or dressing should remain clean and dry for 2 days after surgery. On postoperative day 2 (48 hours after your surgery) the dressing (if present) should be removed and it is okay to shower and get the incision wet. Pad dry afterwards. No further dressing should be required from that point on. Do not put any creams or ointments on theincision > It is normal for there to be a small amount of discharge (bloody or b lood tinged) present from a surgical wound for the first 1-3days. > The wound should be examined twice a day for signs of infection. Mild redness or bruising is to be expected but indications that an infection maybe starting would include; An increase in redness, swelling, or discharge, a foul odor present around the incision, and/or a fever greater than 101 ?F ? Showering is permitted, however we ask that you do not take a bath, sit in a whirlpool / Jacuzzi, or go swimming for 1 month. For only the first 2 days after surgery, lt wilt be necessary for you to cover your wound/dressing with plastic and tape to keep it dry. ? Walking is essential for the healing process after surgery. We would like you to slowly advance your walking. This should be done on relativel y flat clear ground (inside or out) or can be done on a treadmill. Remember this goal does not have to happen all at once, slowly increase your distance and duration. This can be broken into more more than one walk per day as tolerated. Patients who walk as directed after surgery rarely require Physical Therapy. In the unlikely event this issue arises your provider will direct hospital staff to make the appropriate arrangements. ? No lifting over 5 pounds {a gallon of milk) or bending/twisting until further notice. Each of these activities places an unnecessary amount of stress onto the body and can impede the delicate healing process. > Instead of bending at the waist, keep your back straight and bend at the knees. > Instead of twisting your torso, keep your back straight and turn your entire body with your feet. ? You may sleep in any position which makes you comfortable. Many patients find comfort sleeping in a reclining chair. It is not abnormal to have difficulty sleeping for the first several weeks following your surgery. We recommend trying Benadry! or Tylenol PM as directed to help with your sleeping difficulties. Both medications are over the counter and available withoutprescription. ? NO SMOKING!!! Smoking dramatically increases the probability of developing postoperative wound infections. ? Common complaints after lumbar and/or thoracic spine surgery include, but are not limited to: numbness and/or tingling in the legs, pain around the incision and surrounding tissues, muscle spasms, or stiffness of the middle to low back. Contact our office if these symptoms persist or if an acute change occurs. ? No driving for the first 3-5days, and not while taking narcotics until seen at your follow-up appointment and cleared. There are no restrictions for riding on short trips, however if you take a longer trip, arrangements should be made to make regular stops to get out of the vehicle and stretch . ? Swelling is an unfortunate event that will take place with any surgery and is the primary source of your postoperative discomfort. While walking and regular approved activities helps control inflammation, there are additional steps you can take to minimizeswelling. > Place ice over the surgical site and surrounding tissue for twenty minutes, followed by applying a low/medium heat (heating pad) for an additional twenty minutes every 1-2 hours as needed for painrelief. > You may use of over the counter anti-inflammatory medications (Ibuprofen, Motrin, Aleve, Advil, etc) as directed on the package label. These types of medicines wm significantly reduce the amount of discomfort you experience after surgery from swelling. It should be noted that if you have and allergy to any of these medications, or a history of ulcers or kidney disease you should consult you primary care provider prior to starting these medications. Discharge Attestations Time Spent in Discharge Care*: less than 30 min Quality Metrics Clinical Quality Measures [ No reported AMI, CVA or VTE this stay] Coding Level of Care Code Acute Code for Chg Fwd Diagnoses S/P spinal fusion Z98.1
[2022-12-12 11:33] LABS: Glucose Point of Care 133 mg/dL (70-110)
== END 2022-12-12 11:45 | disposition home or self-care (01) | DRG 454 ==
LOC: MEDSURG 14:17
PROVIDERS: Admitting Provider Orthopaedic Surgery; PCP Family Medicine; Visit Provider Orthopaedic Surgery
PROC: 0RG707J Fusion of 2 to 7 Thoracic Vertebral Joints with Autologous Tissue Substitute, Posterior Approach, Anterior Column, Open Approach (ICD-10-PCS; CPT 22612; principal; 2022-12-09 12:50)
DX: M54.16 Radiculopathy, lumbar region (principal); F33.9 Major depressive disorder, recurrent, unspecified; G97.41 Accidental puncture or laceration of dura during a procedure; Z79.891 Long term (current) use of opiate analgesic; Z79.84 Long term (current) use of oral hypoglycemic drugs; G47.30 Sleep apnea, unspecified; D64.9 Anemia, unspecified; I10 Essential (primary) hypertension; E11.9 Type 2 diabetes mellitus without complications; F41.9 Anxiety disorder, unspecified; G89.29 Other chronic pain; Z96.653 Presence of artificial knee joint, bilateral; Y83.8 Other surgical procedures as the cause of abnormal reaction of the patient, or of later complication, without mention of misadventure at the time of the procedure
CPT/HCPCS: 36415; 36416; 36600; 51702; 72100; 76000; 80051; 82330; 82565; 82805; 82962; 85014; 85018; 86850; 86900; 94660; 96365; 97116; 97161; 97530; C1713; C1762; J0330; J1100; J1170; J1644; J1756; J1885; J2250; J2270; J2371; J2405; J2704; J3010; J3370; J3372; J3490; J7030; J7050; J7120; P9045

== ENCOUNTER → 2022-12-17 08:27 | Outpatient (BNVA) | payer MEDICARE, SELFPAY | PROVIDERS: PCP Family Medicine; Visit Provider Physician Assistant | DX: G97.41 Accidental puncture or laceration of dura during a procedure (principal); Z47.89 Encounter for other orthopedic aftercare | CPT/HCPCS: 99024 ==

== ENCOUNTER → 2022-12-24 08:02 | Outpatient (BNVA) | payer MEDICARE, SELFPAY | PROVIDERS: PCP Family Medicine; Visit Provider Physician Assistant | DX: G97.41 Accidental puncture or laceration of dura during a procedure (principal); Z47.89 Encounter for other orthopedic aftercare; Z98.1 Arthrodesis status | CPT/HCPCS: 72080; 99024 ==

== ENCOUNTER → 2023-01-21 09:22 | Outpatient (BNVA) | payer MEDICARE, SELFPAY | PROVIDERS: PCP Family Medicine; Visit Provider Physician Assistant | DX: Z98.1 Arthrodesis status (principal); Z47.89 Encounter for other orthopedic aftercare | CPT/HCPCS: 72100; 99024 ==

== ENCOUNTER → 2023-04-08 08:19 | Outpatient (BNVA) | payer MEDICARE, SELFPAY | PROVIDERS: PCP Family Medicine; Visit Provider Orthopaedic Surgery | DX: Z98.1 Arthrodesis status (principal); Z47.89 Encounter for other orthopedic aftercare; L02.212 Cutaneous abscess of back [any part, except buttock and flank] | CPT/HCPCS: 99213 ==

== ENCOUNTER 2023-04-14 08:19 | Outpatient (CLI) | payer MEDICARE, SELFPAY ==
--- NOTE | 2023-04-14 08:45 | MR_ITS ---
WS: [id number] MRI LUMBAR SPINE NONCONTRAST HISTORY: Prior surgery December 2022. New fluid collection posteriorly. COMPARISON: Prior MRI 09/22/2022. TECHNIQUE: Sagittal and axial multisequence imaging is submitted. Extensive hardware is noted from T10 contiguously into the sacrum. There is significant artifact from this hardware. Large laminectomy defects are noted on the radiograph from L1-L5. There is extensive artifact from the hardware obscuring detail of the vertebral bodies and the discs. There is a large fluid collection extending along the posterior back from approximately T10 inferiorl y by 27 cm to the sacrum. Fluid collection is in the paravertebral soft tissues but extends to abut t he thecal sac. There is a large fluid gap centered over the mid lumbar spine extending over a length of 8.2 cm. This fluid gap is contiguous with the thecal sac. Intrathecal contents are obscured by the hardware artifact. IMPRESSION: 1. There is a large soft tissue fluid collection extending over a length of 27 cm from T10 to the sac rum. 2. Fluid collection extends through the large laminectomy defect measuring 8.2 cm in length to abut t he thecal sac. Differential includes postoperative seroma. Possibility of a dural tear with CSF collection should al so be considered.
== END 2023-04-14 08:20 | disposition home or self-care (01) ==
LOC: RAD 08:20
PROVIDERS: PCP Family Medicine; Visit Provider Orthopaedic Surgery
DX: Z98.1 Arthrodesis status (principal); R93.7 Abnormal findings on diagnostic imaging of other parts of musculoskeletal system
CPT/HCPCS: 72148

== ENCOUNTER → 2023-04-15 10:48 | Outpatient (BNVA) | payer MEDICARE, SELFPAY | PROVIDERS: PCP Family Medicine; Visit Provider Physician Assistant | DX: Z98.1 Arthrodesis status (principal); Z47.89 Encounter for other orthopedic aftercare; G97.41 Accidental puncture or laceration of dura during a procedure | CPT/HCPCS: 72070; 72100; 99213 ==

== ENCOUNTER → 2023-04-20 13:21 | Outpatient (BNVA) | payer MEDICARE, SELFPAY | PROVIDERS: PCP Family Medicine; Visit Provider Orthopaedic Surgery | DX: Z98.1 Arthrodesis status (principal); M96.89 Other intraoperative and postprocedural complications and disorders of the musculoskeletal system; Y83.8 Other surgical procedures as the cause of abnormal reaction of the patient, or of later complication, without mention of misadventure at the time of the procedure; G96.11 Dural tear | CPT/HCPCS: 99214 ==

== ENCOUNTER 2023-04-23 12:35 | Inpatient (IN) | payer MEDICARE, SELFPAY ==
[2023-04-23] VITALS (23 sets, daily range): BP systolic 113–144; BP diastolic 56–84; PULSE 75–124; RESP 12–18; TEMP 36.1–37; O2SAT 91–100; BMI 41.3
[2023-04-23] MEDS: sodium chloride 0.9% 1,000 ML 30 ML IV (06:32)
--- NOTE | 2023-04-23 06:32 | W.PM.OPSUD ---
Surgery/Procedure H&P Update DATE OF PROCEDURE: April 23, 2023 DATE H&P PERFORMED: 04/20/23 H&P UPDATE INFORMATION: I have reviewed H&P completed within last 30 days, I have examined patient prior to procedure and No changes to prior documentation PREOP DIAGNOSIS: Incidental durotomy PLANNED PROCEDURE: Operation Date: 04/23/23 07:45 Proposed Procedures p Dural leak repair(Not Applicable) - Keron Monzon DO
[2023-04-23 06:42] LABS: Glucose Point of Care 108 mg/dL (70-110)
[2023-04-23] MEDS: vancomycin 1,000 MG in sodium chloride 0.9% 250 ML 250 MG IV ×2 (07:23→18:40)
[2023-04-23] MEDS: lidocaine-epi 2% 20 mL INJ INJECTION (08:03)
--- NOTE | 2023-04-23 08:11 | P.ANESASSM_ITS ---
Pre-Anesthetic Assessment Height/Weight: Height 1.7 m Weight 119.748 kg Temp Pulse Resp BP Pulse Ox O2 Del Method 98 F 75 16 127/84 99 Room Air 04/23/23 06:12 04/23/23 06:12 04/23/23 06:12 04/23/23 06:12 04/23/23 06:12 04/23/23 06:28 Preop Diagnosis: Incidental durotomy Operation Date: 04/23/23 07:45 Proposed Procedures p Dural leak repair(Not Applicable) - Keron Monzon, DO Familial anesthetic complications: none Was Beta Anup taken within 24 hours: N/A Was Clonidine taken within 24 hours: N/A Last intake: Intake Last Liquid Date 04/22/23 Last Liquid Time 22:00 Last Solid Date 04/22/23 Last Solid Time 21:00 Social No alcohol and No tobacco Exam alert, oriented x 3, clear to auscultation bilaterally and regular rate & rhythm Airway Submandibular: within normal limits Cervical ROM: within normal limits Mallampati: Class II Dentition: chipped Pulmonary Sleep Apnea CV/HEM Hypertension Metabolic Diabetes Mellitus, Hyperlipidemia and Morbid Obesity [facility] Lower Back Pain and Osteoarthritis/DJD Neuropsych Anxiety and Depression Anesthetic Plan ASA status: 3 Anesthesia: General Medications/Allergies Home Medications Medication Instructions Recorded Confirmed Last Taken Type duloxetine 60 mg capsule,delayed 60 mg PO DAILY 08/05/22 04/22/23 04/22/23 History release sprinkle metformin 1,000 mg tablet 1,000 mg PO BID 08/05/22 04/22/23 04/22/23 History rosuvastatin 10 mg tablet 10 mg PO DAILY 08/05/22 04/22/23 04/22/23 History gegjxxqz-zxzlfyas-dfkk 45 mg-folic 1 cap PO DAILY 08/13/22 04/22/23 04/22/23 History acid 800 mcg-vit K 120 mcg capsule (Bariatric Multivitamins) valsartan 320 1 tab PO DAILY 11/25/22 04/22/23 04/22/23 History mg-hydrochlorothiazide 12.5 mg tablet abdominal binder #1 ea 12/17/22 04/20/23 Unknown Rx intraoperative neurophysiological #1 ea 12/17/22 04/20/23 Unknown Rx monitoring bupropion HCl 300 mg 24 hr tablet, 300 mg PO QAM #90 tabs 01/08/23 04/22/23 04/22/23 Rx extended release cyanocobalamin (vitamin B-12) 1,000 mcg IM .COMPLEX #25 mL 01/08/23 04/22/23 04/19/23 Rx 1,000 mcg/mL injection solution (Dodex) furosemide 20 mg tablet 20 mg PO DAILY #90 tabs 01/08/23 04/22/23 04/22/23 Rx trazodone 50 mg tablet 50 mg PO DAILY #90 tabs 03/24/23 04/22/23 04/22/23 Rx verapamil 180 mg 24 hr 180 mg PO DAILY #90 caps 03/24/23 04/22/23 04/22/23 Rx capsule,extended release Allergies Allergy/AdvReac Type Severity Reaction Status Date / Time NSAIDS (Non-Steroidal Allergy Unknown Verified 04/23/23 06:21 Anti-Inflamma Penicillins Allergy ALGY-Swell Verified 04/23/23 06:21 Lip/Tongue/Throat Current Medications Generic Name Dose Route Start Last Admin Trade Name Freq PRN Reason Stop Dose Admin Sodium Chloride 1,000 mls @ 30 mls/hr 04/23/23 06:15 04/23/23 06:32 Sodium Chloride 0.9% IV 04/24/23 06:14 30 mls/hr .Q24H BRYAN Administration PFSH Anesthesia Medical History (Updated 04/15/23 @ 11:48 by Tigre Pinto PA-C) Incidental durotomy Tinnitus Chronic back pain Insomnia Anxiety Moderate recurrent major depression Essential hypertension Hx of renal artery stenosis History of meningioma Obstructive sleep apnea History of bariatric surgery History of anemia due to vitamin B12 deficiency History of iron deficiency History of nephrolithiasis Anxiety and depression Degenerative joint disease of spine Degenerative arthritis Type 2 diabetes mellitus Hypertension Surgical History Hx of colonoscopy with polypectomy 09/26/15, 11/11/17, Hx of lithotripsy 05/26/17 History of cystoscopy 05/26/17 Hx of excision of lamina of lumbar vertebra for decompression of spinal cord History of Rey-en-Y gastric bypass S/p bilateral carpal tunnel release History of back surgery x 2 - Lower lumbar History of bilateral knee replacement Family History Father Cancer esophageal Mother Cancer Lung Grandfather Cancer Maternal-prostate Other Diabetes Hypertension Denies family history of CAD (coronary artery disease) Clotting disorder Dementia Hyperlipidemia Psychiatric illness Chronic kidney disease (CKD) Suicide Anesthesia complication Bleeding disorder Lung disease Stroke Social History Smoking and tobacco/nicotine status: former use of tobacco/nicotine Quit status (tobacco/nicotine): has quit using Former quit date comment: smoked x 20 years Alcohol intake: former Former alcohol use details: Prior history of heavy alcohol use. He quit drinking at least 30 years ago Substance/Drug Use: never Lives independently: Yes Marital status: Number of children: 3 Current occupational status: disabled Special erika needs: No Agree to transfusion: Yes Data Anesthesia Cardiac Studies: No Data to Display
[2023-04-23] MEDS: thrombin 5,000 unit SDV 5000 UNIT XX ×2 (08:15→08:20)
[2023-04-23] MEDS: vancomycin 1,000 MG SDV 1000 MG XX (08:29)
--- NOTE | 2023-04-23 08:41 | P.OP_ITS ---
Operative Report Date of procedure: April 23, 2023 Pre-op diagnosis: 1. Dural tear 2. seroma 18cm x 6cm x6cm Post-op diagnosis: same Procedure done: 1. Dural repair 2. complex wound closure 18cm x 6cm x 6cm Surgeon: Keron Monzon DO Cereal Supervisor: Tigre Pinto Cereal Supervisor: The hospital administrative assistant, Tigre Pinto, BRITTA was needed for his expertise under the microscope. He was important and necessary throughout the procedure to complete in a safe and timely manner. He assisted with patient positioning prepping and draping tissue retraction suctioning of the operative field protection of the dural sac and tissue closure Estimated blood loss (mL): 15 Procedure: 1. Dural repair 2. complex wound closure 18cm x 6cm x 6cm Patient brought the operative suite after going anesthesia was placed the prone position on his pressure well-padded. Patient's prepped draped also fashion. Skin incision is made using the previous incision was approximately 16 cm long. Once the skin was opened there was a large fluid collection this was irrigated out. The pancreatic collection tracked through the thoracolumbar fascia the thoracolumbar fascia was opened further. The space was irrigated out. Once disc space was irrigated out there do not appear to be any leakage of fluid the dural tear was in the upper right side by the laminectomy at the thoracolumbar junction there was nothing leaking there at the time we did multiple Valsalva's and did not have any clear fluid coming out. Did however place DuraSeal and packed Gelfoam to prevent any further leakage. The thoracolumbar fascia was then undermined and all the tissue was scraped with a curette to get to bleeding tissue. Most thoracolumbar fascia was undermined was allowed to close the layer between the skin and thoracolumbar fascia had a layered membrane which was scraped and taken out with curettes and rongeurs. To get bleeding tissue. This layer was closed in layered fashion with a deep drain and then the skin was closed with nylon suture. Sterile dressings were applied and patient was transferred to the PACU in stable condition.
--- NOTE | 2023-04-23 09:34 | SUR.PHASEI ---
09:12 RECEIVED PT FROM OR STAFF. AIRWAY PATENT. VENTILATING WELL. ROM AND SENSATION ALL 4 EXTREMITIES. 09:14 ORAL AIRWAY DC'ED. AIRWAY PATENT. NSR ON MONITOR. KLEIN AND HEMOVAC PATENT.
--- NOTE | 2023-04-23 09:52 | SUR.PHASEI ---
09:52 BLOOD SUGAR 122mg/dL. tolerated ice chips. family informed of patients condition. 09:58 medicated for pain.
[2023-04-23 09:54] LABS: Glucose Point of Care 122 mg/dL (70-110)
[2023-04-23] MEDS: fentaNYL 50 mcg/mL INJ 2mL IVP (09:58)
[2023-04-23] MEDS: ketorolac 30 mg/mL INJ IVP (10:38)
[2023-04-23] MEDS: HYDROcodone-acetaminophen 5-325 mg Tablet PO ×2 (10:38→18:12)
[2023-04-23] MEDS: famotidine 20 mg/2 mL INJ IVP (11:59)
[2023-04-23] MEDS: diazePAM 5 mg Tablet PO (12:08)
--- NOTE | 2023-04-23 14:01 | ANE.PACU2 ---
Inpatient post-anesthesia follow up: Airway intact: Yes Vital signs: Temperature 97.8 F Pulse Rate 83 Respiratory Rate 18 Blood Pressure 131/78 Pulse Oximetry 94 Oxygen Delivery Me thod Room Air Oxygen Flow Rate 4 Fraction of Inspir ed Oxygen Hydration adequate: Yes Nausea and vomiting: No Pain level: 2 Mental status: Baseline
[2023-04-23] MEDS: FUROsemide 20 mg Tablet PO (14:49)
[2023-04-23] MEDS: lactated ringers 1,000 ML 90 ML IV (14:49)
--- NOTE | 2023-04-23 17:51 | ECG_ITS ---
[facility] Test Date: 2023-04-23 Pat Name: Wilmer Sanchez Department: Room: 261 Gender: Male Lead C Developer: : 1965 Requested By: Keron Lyn Order Number: [id number] Martin MD: Faizan Zamarripa M.D. Measurements Intervals [place] Rate: 118 P: 42 [place]: 166 QRS: 42 QRSD: 106 T: 37 QT: 431 QTc: 606 Interpretive Statements SINUS TACHYCARDIA NONSPECIFIC ST & T-WAVE ABNORMALITY ABNORMAL RHYTHM ECG No previous ECG available for comparison Electronically Signed On 04-23-2023 19:25:08 RECEIVING LEAD by Faizan Zamarripa M.D. [id number] f
[2023-04-23] MEDS: docusate sodium 100 mg Capsule PO (18:12)
[2023-04-23] MEDS: metformin 500 mg Tablet 1000 MG PO (18:12)
--- NOTE | 2023-04-23 19:47 | PC.NURSE ---
Pt states that he is having chest pain approx. 15 minutes after eating dinner. Pt heart rate is 120. Diaphoresis noted. EKG completed showing sinus tach. Pt reports chest pain resolves 2 minutes p EKG, pt reports that he thinks it may be indigestion from eating.
[2023-04-23] MEDS: atorvastatin 40 mg Tablet PO (21:19)
[2023-04-23] MEDS: trazodone 50 mg Tablet PO (21:20)
[2023-04-24] VITALS: BP 115/72; PULSE 105; RESP 17; TEMP 36.6; O2SAT 94
[2023-04-24] MEDS: HYDROcodone-acetaminophen 5-325 mg Tablet PO ×2 (01:05→05:18)
[2023-04-24] MEDS: lactated ringers 1,000 ML 90 ML IV (03:11)
[2023-04-24 04:00] VITALS: BP 132/76; PULSE 88; RESP 18; TEMP 36.8; O2SAT 95
[2023-04-24] MEDS: buPROPion XL (24 HR) 300 mg Tablet PO (05:19)
[2023-04-24] MEDS: vancomycin 1,000 MG in sodium chloride 0.9% 250 ML 250 MG IV (06:42)
[2023-04-24 07:17] VITALS: BP 129/77; PULSE 101; RESP 16; TEMP 37.1; O2SAT 97
--- NOTE | 2023-04-24 08:00 | PM.PN ---
Subjective Subjective: Patient is doing well no complaints. Vitals/I&O/Wt Last Vital Signs Temp 98.7 F 04/24/23 07:17 Pulse 101 H 04/24/23 07:17 Resp 16 04/24/23 07:17 BP 129/77 04/24/23 07:17 Pulse Ox 97 04/24/23 07:17 O2 Del Method Room Air 04/23/23 16:30 O2 Flow Rate 4 04/23/23 10:18 04/23/23 04/24/23 04/24/23 22:59 06:59 14:59 Intake Total 1170 / 3855 1000 / 4855 250 / 250 Output Total 300 / 735 395 / 1130 Balance 870 / 3120 605 / 3725 250 / 250 Weight last 48 hrs Weight 283 lb 8 oz Weight 264 lb Weight 264 lb Physical Exam Narrative: Resting comfortably bed no complaints. Urinary Catheter Management: Leyva Latex: Cath Placed During This Visit: yes Reason for Continuing Indwelling Catheter: Acute Urinary Retention or Obstruction Urinary Catheter Date of Insertion: 04/23/23 Urinary Catheter Time of Insertion: 07:50 A&P Assessment and plan (1) S/P spinal fusion: Will get patient up with physical therapy see how he does. If he does well with physical therapy we will let him go home we will keep the drain when he goes home. Will check back later this morning to see how he is doing with therapy. Attestations Medical Necessity Statement*: Pain control Coding Level of Care Code Acute Code for Chg Fwd Diagnoses S/P spinal fusion Z98.1
[2023-04-24] MEDS: verapamil ER 180 mg Tablet PO (08:24)
[2023-04-24] MEDS: FUROsemide 20 mg Tablet PO (08:24)
[2023-04-24] MEDS: hydroCHLOROthiazide 25 mg Tablet 12.5 MG PO (08:24)
[2023-04-24] MEDS: metformin 500 mg Tablet 1000 MG PO (08:24)
[2023-04-24] MEDS: docusate sodium 100 mg Capsule PO (08:24)
[2023-04-24 08:25] VITALS: BP 129/77
[2023-04-24] MEDS: losartan 50 mg Tablet PO (08:25)
[2023-04-24] MEDS: duloxetine 60 mg Capsule PO (08:25)
[2023-04-24] MEDS: alum-mag-hydroxide-sime 30 mL UDC PO (08:26)
--- NOTE | 2023-04-24 11:55 | PM.DCS ---
Discharge Providers Date of Admission: 04/23/23 12:35 Date of Discharge: April 24, 2023 Attending Provider at Admission: Keron Monzon DO Attending Provider at Discharge: Keron Monzon DO Primary Care Provider: Jimmy Quinteros MD Diagnoses at Discharge Discharge Diagnosis (1) S/P spinal fusion: Status: Acute Physical Exam Urinary Catheter Management: Leyva Latex: Cath Placed During This Visit: yes Reason for Continuing Indwelling Catheter: Acute Urinary Retention or Obstruction Urinary Catheter Date of Insertion: 04/23/23 Urinary Catheter Time of Insertion: 07:50 Discharge Data Studies Completed and Pending Laboratory Results POC Glucose 122 mg/dL (70-110) H 04/23/23 09:51 Vitals Last Vital Signs Temp 98.7 F 04/24/23 07:17 Pulse 101 H 04/24/23 07:17 Resp 16 04/24/23 07:17 BP 129/77 04/24/23 08:25 Pulse Ox 97 04/24/23 07:17 O2 Del Method Room Air 04/23/23 16:30 O2 Flow Rate 4 04/23/23 10:18 Discharge Plan Discharge Patient Disposition: Home Condition: Stable Prescriptions: New hydrocodone-acetaminophen 5-325 mg tablet 1 - 2 tab PO .Q4-6H Qty: 40 0RF Bactrim 400-80 mg tablet 1 tab PO BID 5 Days Qty: 10 0RF Continued metformin 1,000 mg tablet 1,000 mg PO BID rosuvastatin 10 mg tablet 10 mg PO DAILY duloxetine 60 mg capsule, delayed rel sprinkle 60 mg PO DAILY Bariatric Multivitamins 45 mg iron- 800 mcg-120 mcg capsule 1 cap PO DAILY valsartan-hydrochlorothiazide 320-12.5 mg tablet 1 tab PO DAILY (DME) abdominal binder See Rx Instructions .Route .MEDSUPPLY Qty: 1 0RF Rx Instructions: As directed cyanocobalamin (vitamin B-12) [Dodex] 1,000 mcg/mL solution 1,000 mcg IM .COMPLEX Qty: 25 1RF Rx Instructions: 1,000 mcg intramuscularly every 2 weeks; bupropion HCl 300 mg tablet extended release 24 hr 300 mg PO QAM Qty: 90 1RF furosemide 20 mg tablet 20 mg PO DAILY Qty: 90 1RF (DME) intraoperative neurophysiological monitoring See Rx Instructions .Route .MEDSUPPLY Qty: 1 0RF Rx Instructions: As directed trazodone 50 mg tablet 50 mg PO DAILY Qty: 90 0RF verapamil 180 mg capsule,ext rel. pellets 24 hr 180 mg PO DAILY Qty: 90 0RF Discharge Orders: Discharge Order (Routine); Ordered 04/24/23 Ordered By: Keron Monzon Discharge Diet: Advance as tolerated Discharge Activity: Limit activity as instructed Patient Instructions: Opioid Safety Activity Restrictions/Additional Instructions: Thank you for [facility] for your care! The following is a list of instructions, from your provider, to follow upon your discharge to ensure you have the optimal recovery from your recent injury orsurgery. Follow-up care is a berumen part of your treatment and safety. Be sure to make and go to all appointments, and call your doctor if you are having problems. If you do not already have a follow-up appointment made, call Dr. Monzon office in the next 1-3 days to make follow up appointment for April 27 weeks at [phone]. It is also a good idea to know your test results and keep a list of the medicines you take. Medications will be prescribed for you at your provider's discretion. These medications are to be used as instructed; if they are taken more often that prescribed they will not be refilled early and in most cases will not be refilled at all. > When a refill is needed,you should contact trent marinelli 2-3 business days before your prescription runs out. Medications will NOT be refilled by refrigeration mechanic providers after hours! > Many pain medications contain Tylenol (Acetaminophen). Do not consume more than 4,000 mg of Tylenol per day in total with any combination ofmedications. > Pain medications can cause constipation. Please use an over the counter stool softener as directed, while taking pain medications. Consulty our local pharmacist with questions or recommendations on stool softeners. If constipation persists, contact our office or your primary care provider. > While under our care,you are not to receive pain medications or other controlled substances from any other provider unless our office is notified and approves. Any attempts to do so will result in refusal to prescribe any further pain medications and possible dismissal from our practice. ? ? Showering is permitted, however we ask that you do not take a bath, sit in a whirlpool / Jacuzzi, or go swimming for 1 month. lt wilt be necessary for you to cover your wound/dressing with plastic and tape to keep it dry. ? Walking is essential for the healing process after surgery. We would like you to slowly advance your walking. This should be done on relatively flat clear ground (inside or out) or can be done on a treadmill. Remember this goal does not have to happen all at once, slowly increase your distance and duration. This can be broken into more more than one walk per day as tolerated. Patients who walk as directed after surgery rarely require Physical Therapy. In the unlikely event this issue arises your provider will direct hospital staff to make the appropriate arrangements. ? No lifting over 5 pounds {a gallon of milk) or bending/twisting until further notice. Each of these activities places an unnecessary amount of stress onto the body and can impede the delicate healing process. > Instead of bending at the waist, keep your back straight and bend at the knees. > Instead of twisting your torso, keep your back straight and turn your entire body with your feet. ? You may sleep in any position which makes you comfortable. Many patients find comfort sleeping in a reclining chair. It is not abnormal to have difficulty sleeping for the first several weeks following your surgery. We recommend trying Benadry! or Tylenol PM as directed to help with your sleeping difficulties. Both medications are over the counter and available withoutprescription. ? NO SMOKING!!! Smoking dramatically increases the probability of developing postoperative wound infections. ? Common complaints after lumbar and/or thoracic spine surgery include, but are not limited to: numbness and/or tingling in the legs, pain around the incision and surrounding tissues, muscle spasms, or stiffness of the middle to low back. Contact our office if these symptoms persist or if an acute change occurs. ? No driving for the first 3-5days, and not while taking narcotics [] until seen at your follow-up appointment and cleared. There are no restrictions for riding on short trips, however if you take a longer trip, arrangements should be made to make regular stops to get out of the vehicle and stretch . ? Swelling is an unfortunate event that will take place with any surgery and is the primary source of your postoperative discomfort. While walking and regular approved activities helps control inflammation, there are additional steps you can take to minimizeswelling. > Place ice over the surgical site and surrounding tissue for twenty minutes, followed by applying a low/medium heat (heating pad) for an additional twenty minutes every 1-2 hours as needed for painrelief. > You may use of over the counter anti-inflammatory medications (Ibuprofen, Motrin, Aleve, Advil, etc) as directed on the package label. These types of medicines wm significantly reduce the amount of discomfort you experience after surgery from swelling. It should be noted that if you have and allergy to any of these medications, or a history of ulcers or kidney disease you should consult you primary care provider prior to starting these medications. Discharge Attestations Time Spent in Discharge Care*: less than 30 min Quality Metrics Clinical Quality Measures [ No reported AMI, CVA or VTE this stay] Coding Level of Care Code Acute Code for Chg Fwd Diagnoses S/P spinal fusion Z98.1
[2023-04-24 12:58] VITALS: BP 129/77
== END 2023-04-24 12:59 | disposition home or self-care (01) | DRG 908 ==
LOC: MEDSURG 12:36
PROVIDERS: Admitting Provider Orthopaedic Surgery; PCP Family Medicine; Visit Provider Orthopaedic Surgery
PROC: 00QT0ZZ Repair Spinal Meninges, Open Approach (ICD-10-PCS; CPT 63005; principal; 2023-04-23 07:45)
DX: G97.41 Accidental puncture or laceration of dura during a procedure (principal); L76.34 Postprocedural seroma of skin and subcutaneous tissue following other procedure; Y83.1 Surgical operation with implant of artificial internal device as the cause of abnormal reaction of the patient, or of later complication, without mention of misadventure at the time of the procedure; Y92.9 Unspecified place or not applicable; G47.30 Sleep apnea, unspecified; I10 Essential (primary) hypertension; E11.9 Type 2 diabetes mellitus without complications; E78.5 Hyperlipidemia, unspecified; F41.9 Anxiety disorder, unspecified; F32.A Depression, unspecified; G89.29 Other chronic pain; M54.50 Low back pain, unspecified; Z98.84 Bariatric surgery status; Z87.891 Personal history of nicotine dependence
CPT/HCPCS: 36416; 51702; 82962; 93005; 97161; 97530; 99214; J1100; J1885; J2405; J2704; J3010; J3370; J3490; J7030; J7050; J7120

== ENCOUNTER → 2023-05-04 14:22 | Outpatient (BNVA) | payer MEDICARE, SELFPAY | PROVIDERS: PCP Family Medicine; Visit Provider Physician Assistant | DX: Z47.89 Encounter for other orthopedic aftercare (principal); Z98.1 Arthrodesis status | CPT/HCPCS: 99024 ==

== ENCOUNTER → 2023-05-18 14:48 | Outpatient (BNVA) | payer MEDICARE, SELFPAY | PROVIDERS: PCP Family Medicine; Visit Provider Orthopaedic Surgery | DX: Z98.1 Arthrodesis status (principal); Z47.89 Encounter for other orthopedic aftercare | CPT/HCPCS: 99024 ==

== ENCOUNTER → 2023-06-14 11:00 | Outpatient (BNVA) | payer MEDICARE, SELFPAY | PROVIDERS: PCP Family Medicine; Visit Provider Family Medicine | DX: E11.9 Type 2 diabetes mellitus without complications (principal); E53.8 Deficiency of other specified B group vitamins; E61.1 Iron deficiency; M54.9 Dorsalgia, unspecified; G89.29 Other chronic pain; D50.8 Other iron deficiency anemias; I10 Essential (primary) hypertension; F33.1 Major depressive disorder, recurrent, moderate; F41.9 Anxiety disorder, unspecified; G47.00 Insomnia, unspecified; Z79.899 Other long term (current) drug therapy | CPT/HCPCS: 80053; 82607; 82728; 83036; 83550; 85025 ==

== ENCOUNTER → 2023-06-15 08:33 | Outpatient (BNVA) | payer MEDICARE, SELFPAY | PROVIDERS: PCP Family Medicine; Visit Provider Orthopaedic Surgery | DX: Z47.89 Encounter for other orthopedic aftercare; Z98.1 Arthrodesis status | CPT/HCPCS: 72100; 99213 ==

== ENCOUNTER → 2023-10-18 09:14 | Outpatient (BNVA) | payer OTHER, SELFPAY | PROVIDERS: PCP Family Medicine; Visit Provider Family Medicine | DX: Z12.11 Encounter for screening for malignant neoplasm of colon (principal); Z12.12 Encounter for screening for malignant neoplasm of rectum; E11.9 Type 2 diabetes mellitus without complications; M19.041 Primary osteoarthritis, right hand; I10 Essential (primary) hypertension | CPT/HCPCS: 73130 ==

== ENCOUNTER → 2023-12-03 08:49 | Outpatient (BNVA) | payer OTHER, SELFPAY | PROVIDERS: PCP Family Medicine; Visit Provider Family Medicine | DX: E11.9 Type 2 diabetes mellitus without complications (principal) | CPT/HCPCS: 80053; 82728; 83036; 83550; 85025 ==

== ENCOUNTER → 2023-12-09 10:27 | Outpatient (BNVA) | payer OTHER, SELFPAY | PROVIDERS: PCP Family Medicine; Visit Provider Orthopaedic Surgery | DX: Z98.1 Arthrodesis status (principal) | CPT/HCPCS: 72100; 99024 ==

== ENCOUNTER 2023-12-14 08:43 | Day surgery (SDC) | payer OTHER, SELFPAY ==
[2023-12-14 08:51] VITALS: BMI 36.1
[2023-12-14 08:56] VITALS: BP 153/96; PULSE 92; RESP 18; TEMP 36.3; O2SAT 98
[2023-12-14] MEDS: sodium chloride 0.9% 1,000 ML 30 ML IV (09:02)
[2023-12-14 09:08] LABS: Glucose Point of Care 116 mg/dL (70-110)
--- NOTE | 2023-12-14 09:43 | P.HPUD_ITS ---
Surgery/Procedure H&P Update DATE OF PROCEDURE: December 14, 2023 DATE H&P PERFORMED: 11/17/23 H&P UPDATE INFORMATION: I have reviewed H&P completed within last 30 days, I have examined patient prior to procedure, No changes to prior documentation and H&P is in [facility] on date indicated PLANNED PROCEDURE: Operation Date: 12/14/23 09:50 Proposed Procedures p Colonoscopy 05635, G0105, Z12.11(Not Applicable) - Abel Rangel MD
--- NOTE | 2023-12-14 09:43 | W.PM.OPSUD ---
Surgery/Procedure H&P Update DATE OF PROCEDURE: December 14, 2023 DATE H&P PERFORMED: 11/17/23 H&P UPDATE INFORMATION: I have reviewed H&P completed within last 30 days, I have examined patient prior to procedure, No changes to prior documentation and H&P is in [facility] EMR on date indicated PLANNED PROCEDURE: Operation Date: 12/14/23 09:50 Proposed Procedures p Colonoscopy 01978, G0105, Z12.11(Not Applicable) - Abel Rangel MD
--- NOTE | 2023-12-14 09:56 | ANES.PREANE2 ---
Pre-Anesthetic Assessment Height/Weight: Height 1.85 m Weight 124.284 kg Temp Pulse Resp BP Pulse Ox O2 Del Method 97.4 F L 92 18 153/96 98 Room Air 12/14/23 08:56 12/14/23 08:56 12/14/23 08:56 12/14/23 08:56 12/14/23 08:56 12/14/23 08:56 Preop Diagnosis: Screening Operation Date: 12/14/23 09:50 Proposed Procedures p Colonoscopy 63311, G0105, Z12.11(Not Applicable) - Abel Rangel MD Was Beta Anup taken within 24 hours: Yes Was Clonidine taken within 24 hours: N/A Last intake: Intake Last Liquid Date 12/13/23 Last Liquid Time 21:30 Last Solid Date 12/12/23 Last Solid Time 20:30 Social No alcohol and No tobacco Exam alert, oriented x 3, clear to auscultation bilaterally and regular rate & rhythm Airway Submandibular: within normal limits Cervical ROM: within normal limits Mallampati: Class II Dentition: full History/ROS No significant history except as noted and No significant complaints Pulmonary Sleep Apnea CV/HEM Hypertension None reported Hepatic None reported GI None reported Metabolic Diabetes Mellitus and Morbid Obesity [facility] Back Pain and Osteoarthritis/DJD Neuropsych Anxiety Anesthetic Plan ASA status: 3 Anesthesia: Anesthesia Evaluation and MAC Risk of > 500 ml blood loss (7ml/kg in children): No Medications/Allergies Home Medications Medication Instructions Recorded Confirmed Last Taken Type phyxghdc-eldwhwyi-grwv 45 mg-folic 1 cap PO DAILY 08/13/22 12/09/23 12/13/23 History acid 800 mcg-vit K 120 mcg capsule (Bariatric Multivitamins) abdominal binder #1 ea 12/17/22 12/09/23 Unknown Rx intraoperative neurophysiological #1 ea 12/17/22 12/09/23 Unknown Rx monitoring cyanocobalamin (vitamin B-12) 1,000 mcg IM .COMPLEX #25 mL 01/08/23 12/09/23 12/03/23 Rx 1,000 mcg/mL injection solution (Dodex) trazodone 50 mg tablet 50 mg PO DAILY #90 tabs 03/24/23 12/09/23 12/09/23 Rx Syringe #12 ea 06/21/23 12/09/23 Unknown Rx rosuvastatin 10 mg tablet 10 mg PO DAILY #90 tabs 06/21/23 12/09/23 12/09/23 Rx valsartan 320 1 tab PO DAILY #90 tabs 06/21/23 12/09/23 12/13/23 Rx mg-hydrochlorothiazide 12.5 mg tablet verapamil 180 mg tablet,extended 180 mg PO DAILY #90 tabs 06/23/23 12/09/23 12/13/23 Rx release bupropion HCl 300 mg 24 hr tablet, 300 mg PO QAM #90 tabs 08/18/23 12/09/23 12/13/23 Rx extended release duloxetine 60 mg capsule,delayed 60 mg PO DAILY #90 caps 08/18/23 12/09/23 12/13/23 Rx release sprinkle diclofenac sodium 1 % topical gel 4 g topical QID #100 grams 10/18/23 12/09/23 Unknown Rx (Voltaren Arthritis Pain) furosemide 40 mg tablet 40 mg PO DAILY #90 tabs 10/18/23 12/09/23 12/13/23 Rx potassium chloride 20 mEq 20 meq PO DAILY #90 tabs 10/18/23 12/09/23 12/13/23 Rx tablet,extended release metformin 1,000 mg tablet 1,000 mg PO BID #180 tabs 12/06/23 12/09/23 12/09/23 Rx Allergies Allergy/AdvReac Type Severity Reaction Status Date / Time NSAIDS (Non-Steroidal Allergy Unknown Verified 12/09/23 10:41 Anti-Inflamma Penicillins Allergy ALGY-Swell Verified 12/09/23 10:41 Lip/Tongue/Throat Current Medications Generic Name Dose Route Start Last Admin Trade Name Freq PRN Reason Stop Dose Admin Sodium Chloride 1,000 mls @ 30 mls/hr 12/14/23 09:00 12/14/23 09:02 Sodium Chloride 0.9% IV 12/15/23 08:59 30 mls/hr .Q24H BRYAN Administration PFSH Anesthesia Medical History Incidental durotomy Tinnitus Chronic back pain Insomnia Anxiety Moderate recurrent major depression Essential hypertension Hx of renal artery stenosis History of meningioma Obstructive sleep apnea History of bariatric surgery History of anemia due to vitamin B12 deficiency History of iron deficiency History of nephrolithiasis Anxiety and depression Degenerative joint disease of spine Degenerative arthritis Type 2 diabetes mellitus Hypertension Surgical History Hx of colonoscopy with polypectomy 09/26/15, 11/11/17, Hx of lithotripsy 05/26/17 History of cystoscopy 05/26/17 Hx of excision of lamina of lumbar vertebra for decompression of spinal cord History of Rey-en-Y gastric bypass S/p bilateral carpal tunnel release History of back surgery x 2 - Lower lumbar History of bilateral knee replacement Family History Father Cancer esophageal Mother Cancer Lung Grandfather Cancer Maternal-prostate Other Diabetes Hypertension Denies family history of CAD (coronary artery disease) Clotting disorder Dementia Hyperlipidemia Psychiatric illness Chronic kidney disease (CKD) Suicide Anesthesia complication Bleeding disorder Lung disease Stroke Social History Smoking and tobacco/nicotine status: never used tobacco/nicotine Quit status (tobacco/nicotine): has quit using Former quit date comment: smoked x 20 years Alcohol intake: former Former alcohol use details: Prior history of heavy alcohol use. He quit drinking at least 30 years ago Substance/Drug Use: never Lives independently: Yes Marital status: Number of children: 3 Current occupational status: disabled Special erika needs: No Agree to transfusion: Yes Data Anesthesia Cardiac Studies: No Data to Display
[2023-12-14 10:45] VITALS: BP 133/73; PULSE 83; RESP 20; TEMP 36.5; O2SAT 96
[2023-12-14 10:54] VITALS: BP 128/78; PULSE 82; RESP 18; O2SAT 96
--- NOTE | 2023-12-14 11:10 | ANE.PACU2 ---
Inpatient post-anesthesia follow up: Airway intact: Yes Vital signs: Temperature 97.7 F Pulse Rate 82 Respiratory Rate 18 Blood Pressure 128/78 Pulse Oximetry 96 Oxygen Delivery Me thod Room Air Oxygen Flow Rate Fraction of Inspir ed Oxygen Hydration adequate: Yes Nausea and vomiting: No Pain level: 1 Mental status: Baseline
== END 2023-12-14 11:12 | disposition home or self-care (01) ==
PROVIDERS: PCP Family Medicine; Visit Provider Surgery
PROC: 0DJD8ZZ Inspection of Lower Intestinal Tract, Via Natural or Artificial Opening Endoscopic (ICD-10-PCS; CPT 45378; principal; 2023-12-14 09:50)
DX: Z12.11 Encounter for screening for malignant neoplasm of colon (principal); K57.30 Diverticulosis of large intestine without perforation or abscess without bleeding; K64.8 Other hemorrhoids; Z86.010 Personal history of colon polyps; G47.30 Sleep apnea, unspecified; E11.9 Type 2 diabetes mellitus without complications; E66.01 Morbid (severe) obesity due to excess calories; Z68.36 Body mass index [BMI] 36.0-36.9, adult; F41.9 Anxiety disorder, unspecified; I10 Essential (primary) hypertension; Z87.891 Personal history of nicotine dependence
CPT/HCPCS: 36416; 45378; 82962; J2704; J7030

== ENCOUNTER 2024-01-07 07:51 | Oncology outpatient (recurring) (ONCR) | payer OTHER, SELFPAY ==
[2024-01-07 08:50] LABS: Basophils % 0.6 %; Eosinophils # 0.1 10^3/uL (0.0-0.8); Eosinophils % 1.7 %; Hematocrit 39.1 % (37-53); Lymphocytes # 1.5 10^3/uL (0.8-4.8); Lymphocytes % 30.9 %; Mean Corpuscular HGB Conc 30.9 g/dL (30-55); Mean Corpuscular Volume 77.6 fl (82-101); Mean Platelet Volume 9.7 fL (7.4-10.4); Monocytes # 0.5 10^3/uL (0.2-0.9); Monocytes % 10.2 %; Neutrophils # 2.72 10^3/uL (1.8-7.7); Neutrophils % 56.4 %; Nucleated Red Blood Cells % 0 %; Platelet Count 293 10^3/cmm (157-399); Red Blood Count 5.04 10^6/uL (3.85-5.65); Red Cell Distribution Width 16.4 % (12.1-15.1); White Blood Count 4.82 10^3/uL (3.29-11.43)
[2024-01-07 09:08] LABS: Alanine Aminotransferase 17 U/L (0-41); Albumin Level 4.1 g/dL (3.5-5.2); Alkaline Phosphatase 103 U/L (40-130); Anion Gap 14.1 (5-19); Aspartate Amino Transferase 22 U/L (0-40); Blood Urea Nitrogen 17 mg/dL (6-20); Calcium 8.5 mg/dL (8.5-10.5); Carbon Dioxide 26 mmol/L (22-29); Chloride 105 mmol/L (98-107); Globulin 2.5 g/dL (1.3-4.6); Glomerular Filtration Rate 99.3 mL/min (90-130); Glucose 112 mg/dL (65-115); Osmolality Calculated 294 mOsm/kg (285-295); Potassium 4.1 mmol/L (3.5-5.1); Sodium 141 mmol/L (136-145); Total Bilirubin 0.3 mg/dL (0.15-1.2); Total Protein 6.6 g/dL (6.6-8.7)
[2024-01-07 10:38] LABS: Ferritin 10 ng/mL (30-400); Iron 29 ug/dL (59-158); Percent Saturation 8.9 % (20-50); Total Iron Binding Capacity 324 mcg/dl; Unsaturated Iron Binding 295 ug/dL (112-347)
== END 2024-01-31 23:59 | disposition home or self-care (01) ==
PROVIDERS: Nurse Practitioner Family; PCP Family Medicine; Visit Provider Internal Medicine Medical Oncology
DX: D50.8 Other iron deficiency anemias (principal)
CPT/HCPCS: 36415; 80053; 82728; 83540; 83550; 85025; 99214

== ENCOUNTER 2024-01-25 06:42 | Outpatient (CLI) | payer OTHER, SELFPAY ==
--- NOTE | 2024-01-25 06:45 | US_ITS ---
WS: [id number] RIGHT UPPER QUADRANT ULTRASOUND HISTORY: RUQ pain x 3 weeks; Rey-en Y gastric bypass COMPARISON: None available. Liver: 15.2 cm in length. Normal size liver with coarse echotexture. Poor visualization of the portal triads. No mass. Portal Vein: Normal hepatopetal flow with monophasic waveform. Gallbladder: Limited visualization of the gallbladder due to large amount of gas. CBD: 0.4 cm Pancreas: Completely obscured. Right kidney: 10.0 cm in length. Normal size and echogenicity. No hydronephrosis or mass. Aorta and IVC: Unremarkable abdominal aorta and IVC. No ascites. US/US abdomen limited 11161 IMPRESSION: 1. Technically very limited evaluation of the RIGHT upper quadrant due to inder l gas, poor acoustic windows and body habitus. 2. Poor visualization of the gallbladder but no stones identified. 3. Hepatic steatosis.
== END 2024-01-25 06:43 | disposition home or self-care (01) ==
LOC: RAD 06:42
PROVIDERS: PCP Family Medicine; Visit Provider Nurse Practitioner Family
DX: E61.1 Iron deficiency (principal); Z98.84 Bariatric surgery status; K76.0 Fatty (change of) liver, not elsewhere classified
CPT/HCPCS: 76705

== ENCOUNTER 2024-02-17 15:30 | Oncology outpatient (recurring) (ONCR) | payer OTHER, SELFPAY ==
[2024-02-02] MEDS: iron sucrose 200 MG in sodium chloride 0.9% (100 ml) 100 ML 220 MG IV (15:40)
[2024-02-02 15:45] VITALS: BP 129/78; PULSE 86; RESP 17; TEMP 36.3; O2SAT 96
[2024-02-04] MEDS: iron sucrose 200 MG in sodium chloride 0.9% (100 ml) 100 ML 220 MG IV (10:15)
[2024-02-04 10:21] VITALS: BP 117/67; PULSE 68; RESP 16; TEMP 36.6; O2SAT 97
[2024-02-04 10:46] VITALS: BP 117/63; PULSE 69; RESP 16; TEMP 36.4; O2SAT 99
[2024-02-07] MEDS: iron sucrose 200 MG in sodium chloride 0.9% (100 ml) 100 ML 220 MG IV (15:25)
[2024-02-07 15:55] VITALS: BP 131/79; PULSE 76; RESP 16; TEMP 36.6; O2SAT 97
[2024-02-09 15:15] VITALS: BP 124/85; PULSE 85; RESP 17; TEMP 36.7; O2SAT 95
[2024-02-09] MEDS: iron sucrose 200 MG in sodium chloride 0.9% (100 ml) 100 ML 220 MG IV (15:24)
[2024-02-09 16:00] VITALS: BP 132/78; PULSE 88; RESP 16; TEMP 36.4; O2SAT 98
[2024-02-11 09:36] VITALS: BP 137/82; PULSE 68; RESP 16; TEMP 37.1; O2SAT 99
[2024-02-11] MEDS: iron sucrose 200 MG in sodium chloride 0.9% (100 ml) 100 ML 220 MG IV (09:42)
[2024-02-11 10:10] VITALS: BP 127/81; PULSE 61; RESP 16; TEMP 36.2; O2SAT 99
--- NOTE | 2024-02-17 15:30 | CTR_ITS ---
PROCEDURE INFORMATION: Exam: CT Abdomen With Contrast Exam date and time: 02/17/2024 4:07 PM Age: 58 years old Clinical indication: Abdominal pain; Localized; Right upper quadrant (ruq); Prior surgery; Surgery date: 6+ months; Surgery type: Lumbar fusion, gastric bypass; Additional info: Ruq pain, ruq pain with onset 4 weeks ago. History of adebayo-en-y TECHNIQUE: Imaging protocol: Computed tomography of the abdomen with contrast. Radiation optimization: All CT scans at this facility use at least one of these dose optimization techniques: automated exposure control; mA and/or kV adjustment per patient size (includes targeted exams where dose is matched to clinical indication); or iterative reconstruction. Contrast material: OMNI 350; Contrast volume: 100 ml; Contrast route: INTRAVENOUS (IV); COMPARISON: abdomen limited [id number] 01/25/2024 7:01 AM RADIATION DOSE METRICS: Total DLP (mGy-cm): 830.33 FINDINGS: Liver: Normal. No mass. Gallbladder and biliary ducts: Normal. No calcified stones. No ductal dilation. Pancreas: Normal. No ductal dilation. Spleen: Normal. No splenomegaly. Adrenal glands: Normal. No mass. Kidneys: Right renal cysts. Stomach and bowel: Prior gastric surgery. Intraperitoneal space: Unremarkable. No free air. No significant fluid collection. Vasculature: Unremarkable. No abdominal aortic aneurysm. Lymph nodes: Unremarkable. No enlarged lymph nodes. Bones/joints: Lower lumbar laminectomy and posterior fusion. Soft tissues: Unremarkable. CT/CT abdomen w con* [id number] IMPRESSION: No acute subdiaphragmatic pathology. COMMENTS: Consistent with the [employer]'s Incidental Findings Committee white paper (J Am Homero Radiol 2018): Any incidental renal lesion less than 1 cm or classified as too small to characterize, or any incidental cystic renal lesion characterized as simple-appearing, is likely benign. No follow-up imaging is recommended for these lesions per consensus recommendations based on imaging criteria.
[2024-02-17] MEDS: iohexol 350 mg/mL 500 mL Btl (per mL) IV (16:23)
[2024-02-17] MEDS: iohexol 350 mg/mL 500 mL Btl (per mL) PO (16:23)
== END 2024-03-02 23:59 | disposition home or self-care (01) ==
LOC: RAD 02-18 00:01 → ONCMED 03-02 15:34
PROVIDERS: PCP Family Medicine; Visit Provider Nurse Practitioner Family
DX: D50.8 Other iron deficiency anemias (principal)
CPT/HCPCS: 74160; 96365; J1756

== ENCOUNTER 2024-02-19 11:00 | Emergency (ER) | payer OTHER, SELFPAY ==
[2024-02-19 11:05] VITALS: BP 139/81; PULSE 101; RESP 18; TEMP 36.8; O2SAT 99
--- NOTE | 2024-02-19 11:13 | ED_ITS ---
HPI - Neuro Symptoms/Deficit 2 General: Chief Complaint: Neuro Symptoms/Deficit Stated Complaint: stroke like symptoms Time Seen by Provider: 02/19/24 11:12 History of Present Illness: Says his entire left face feels like it is drooping but when he looks in the mirror it is not. He said he felt like he was having some trouble drinking and water dripped out on the left side. No obvious deficits. No sensory deficit. This involves the forehead that I left cheek in the mouth. He also had some brief tingling in the tips of his fingers. This is resolved. No fevers. No chest pain. No shortness of breath. No abdominal pain. No nausea or vomiting. Related Data Home Medications Medication Instructions Recorded Confirmed [id number] 45 mg-folic 1 cap PO DAILY 08/13/22 01/07/24 acid 800 mcg-vit K 120 mcg capsule (Bariatric Multivitamins) Previous Rx's Medication Instructions Recorded abdominal binder #1 ea 12/17/22 intraoperative neurophysiological #1 ea 12/17/22 monitoring Syringe #12 ea 06/21/23 valsartan 320 1 tab PO DAILY #90 tabs 06/21/23 mg-hydrochlorothiazide 12.5 mg tablet bupropion HCl 300 mg 24 hr tablet, 300 mg PO QAM #90 tabs 08/18/23 extended release duloxetine 60 mg capsule,delayed 60 mg PO DAILY #90 caps 08/18/23 release sprinkle diclofenac sodium 1 % topical gel 4 g topical QID #100 grams 10/18/23 (Voltaren Arthritis Pain) furosemide 40 mg tablet 40 mg PO DAILY #90 tabs 10/18/23 potassium chloride 20 mEq 20 meq PO DAILY #90 tabs 10/18/23 tablet,extended release metformin 1,000 mg tablet 1,000 mg PO BID #180 tabs 12/06/23 rosuvastatin 10 mg tablet 10 mg PO DAILY #90 tabs 01/04/24 trazodone 50 mg tablet 50 mg PO DAILY #90 tabs 01/04/24 verapamil 180 mg tablet,extended 180 mg PO DAILY #90 tabs 01/05/24 release cyanocobalamin (vitamin B-12) 1,000 mcg IM .COMPLEX #25 mL 02/11/24 1,000 mcg/mL injection solution (Dodex) Allergies Allergy/AdvReac Type Severity Reaction Status Date / Time NSAIDS (Non-Steroidal Allergy Unknown Verified 01/07/24 09:09 Anti-Inflamma Penicillins Allergy YULIANAY-Swell Verified 01/07/24 09:09 Lip/Tongue/Throat Review of Systems 2 Narrative: Constitutional symptoms: Negative except as documented in HPI. Skin symptoms: Negative except as documented in HPI. Eye symptoms: Negative except as documented in HPI. ENMT symptoms: Negative except as documented in HPI. Respiratory symptoms: Negative except as documented in HPI. Cardiovascular symptoms: Negative except as documented in HPI. Gastrointestinal symptoms: Negative except as documented in HPI. Genitourinary symptoms: Negative except as documented in HPI. Musculoskeletal symptoms: Negative except as documented in HPI. Neurologic symptoms: Negative except as documented in HPI. Psychiatric symptoms: Negative except as documented in HPI. Endocrine symptoms: Negative except as documented in HPI. PFSH ED 2 PFSH: Medical History Incidental durotomy Tinnitus Chronic back pain Insomnia Anxiety Moderate recurrent major depression Essential hypertension Hx of renal artery stenosis History of meningioma Obstructive sleep apnea History of bariatric surgery History of anemia due to vitamin B12 deficiency History of iron deficiency History of nephrolithiasis Anxiety and depression Degenerative joint disease of spine Degenerative arthritis Type 2 diabetes mellitus Hypertension Surgical History Hx of colonoscopy with polypectomy 09/26/15, 11/11/17, Hx of lithotripsy 05/26/17 History of cystoscopy 05/26/17 Hx of excision of lamina of lumbar vertebra for decompression of spinal cord History of Rey-en-Y gastric bypass S/p bilateral carpal tunnel release History of back surgery x 2 - Lower lumbar History of bilateral knee replacement Family History Father Cancer esophageal Mother Cancer Lung Grandfather Cancer Maternal-prostate Other Diabetes Hypertension Denies family history of CAD (coronary artery disease) Clotting disorder Dementia Hyperlipidemia Psychiatric illness Chronic kidney disease (CKD) Suicide Anesthesia complication Bleeding disorder Lung disease Stroke Social History Smoking and tobacco/nicotine status: never used tobacco/nicotine Quit status (tobacco/nicotine): has quit using Former quit date comment: smoked x 20 years Alcohol intake: former Former alcohol use details: Prior history of heavy alcohol use. He quit drinking at least 30 years ago Substance/Drug Use: never Lives independently: Yes Marital status: Number of children: 3 Current occupational status: disabled Special erika needs: No Agree to transfusion: Yes Physical Exam 2 Narrative: EXAM NARRATIVE: General: Alert, no acute distress. Skin: Warm, dry. Head: Normocephalic, atraumatic. Neck: Supple, trachea midline. Eye: Extraocular movements are intact. Ears, nose, mouth and throat: mucosa moist. Cardiovascular: Regular, Normal peripheral perfusion. Respiratory: Lungs are clear to auscultation, respirations are non-labored, breath sounds are equal, Symmetrical chest wall expansion. Gastrointestinal: Soft, Nontender, Non distended Musculoskeletal: Normal ROM, no deformity. Neurological: Alert and oriented, No focal neurological deficit observed. Psychiatric: Cooperative, appropriate mood & affect. Course 2 Vital Signs: Vital signs: Vital Signs Temperature 98.2 F 02/19/24 11:05 Pulse Rate 85 02/19/24 12:45 Respiratory Rate 21 H 02/19/24 12:45 Blood Pressure 131/76 02/19/24 12:45 Pulse Oximetry 97 02/19/24 12:45 Oxygen Delivery Me thod Room Air 02/19/24 11:05 MDM - Neuro Symptoms/Deficit Medical Decision Making Medical decision making: Differential diagnosis for patient with focal neurologic deficit(s) includes but not limited to and based on the above HPI, review of systems and physical exam: ischemic stroke, hemorrhagic stroke and embolic stroke secondary to atrial fibrillation), TIA, Parada's palsey, metabolic encephalopathy with previous stroke. Orders placed to evaluate differential diagnosis based on the above differential, HPI and physical exam NIH Stroke Scale/Score (NIHSS) from [email or web address] on 02/19/2024 All calculations should be rechecked by clinician prior to use RESULT SUMMARY: 0 points NIH Stroke Scale INPUTS: 1A: Level of consciousness ?> 0 = Alert; keenly responsive 1B: Ask month and age ?> 0 = Both questions right 1C: 'Blink eyes' & 'squeeze hands' ?> 0 = Performs both tasks 2: Horizontal extraocular movements ?> 0 = Normal 3: Visual wong ?> 0 = No visual loss 4: Facial palsy ?> 0 = Normal symmetry 5A: Left arm motor drift ?> 0 = No drift for 10 seconds 5B: Right arm motor drift ?> 0 = No drift for 10 seconds 6A: Left leg motor drift ?> 0 = No drift for 5 seconds 6B: Right leg motor drift ?> 0 = No drift for 5 seconds 7: Limb Ataxia ?> 0 = No ataxia 8: Sensation ?> 0 = Normal; no sensory loss 9: Language/aphasia ?> 0 = Normal; no aphasia 10: Dysarthria ?> 0 = Normal 11: Extinction/inattention ?> 0 = No abnormality EKG: Time 1131. Rate 83. Normal sinus rhythm, No ST-T changes, no ectopy, normal [place] & QRS intervals, This was reviewed and interpreted by myself the ER physician at 1135. CT head: No acute intracranial process. no intracranial hemorrhage, no evidence of infarct. no evidence of acute fracture.This was reviewed and interpreted by myself the ER physician. CTA of the head and neck: No obvious occlusions are identified. No mass. This was reviewed and interpreted by myself the emergency room physician. I also reviewed the radiology report. Lab Review: Laboratory results were reviewed and interpreted by myself the emergency room physician. Lab work is unremarkable. No leukocytosis. No anemia. No renal failure. Urine is clear. I reviewed the patient's medical record. Reexamination: Patient remained stable. No increased work of breathing. No altered mental status. No focal motor deficits. We discussed that the distribution of the symptoms is unlikely to be central but more of a peripheral pattern similar to that of Parada's. However he does not have any actual palsy. I recommend that he follow-up with his primary early next week take a full-strength aspirin and have his primary consider an MRI. Assessment and plan: Paresthesia - Discharged home - Discussed findings and plan with patient. Answered any questions. - All laboratory values were reviewed and interpreted personally by myself, the ER physician - All imaging was reviewed and interpreted personally by myself, the ER physician. - Evaluation and treatment of this problem were appropriate in the emergency setting Lab Data 02/19/24 11:22 02/19/24 11:[address] 02/19/24 11:13 IMPRESSION: 1. No acute intracranial abnormalities. 2. 9 mm meningioma adjacent to the right temporoparietal lobe. Recommend follow-up nonemergent contrast enhanced MRI examination of the brain for confirmation. ASSESSMENT: ASPECTS ([place] Stroke Program Early CT Score) is 10. Head/Neck CTA 02/19/24 11:13 IMPRESSION: 1. No large vessel occlusion or major branch stenosis. 2. Redemonstration of 9 mm hyperdense extra-axial mass right temporoparietal lobe presumed to represent a small meningioma IMPRESSION: 1. No evidence of carotid stenosis or occlusion. 2. Congenitally hypoplastic left vertebral artery. REFERENCES: NASCET CRITERIA. The degree of stenosis in the cervical segment of the internal carotid artery is based on NASCET criteria. Normal is no stenosis. Mild is less than 50% stenosis. Moderate is 50-69% stenosis. Severe is 70% to 99% stenosis. Total occlusion is no detectable patent lumen. Laboratory Results WBC 5.78 10^3/uL (3.29-11.43) 02/19/24 11:22 RBC 5.68 10^6/uL (3.85-5.65) H 02/19/24 11:22 Hgb 14.60 g/dL (11.27-16.99) 02/19/24 11:22 Hct 46.6 % (37-53) 02/19/24 11:22 MCV 82.0 fl (82-101) 02/19/24 11:22 MCH 25.7 pg (27-33) L 02/19/24 11:22 MCHC 31.3 g/dL (30-55) 02/19/24 11:22 RDW 20.7 % (12.1-15.1) H 02/19/24 11:22 Plt Count 315 10^3/cmm (157-399) 02/19/24 11:22 MPV 9.6 fL (7.4-10.4) 02/19/24 11:22 Neut % (Auto) 61.8 % 02/19/24 11:22 Lymph % (Auto) 24.6 % 02/19/24 11:22 Nicholas % (Auto) 10.7 % 02/19/24 11:22 Eos % (Auto) 1.6 % 02/19/24 11:22 Baso % (Auto) 1.0 % 02/19/24 11:22 Neut # (Auto) 3.57 10^3/uL (1.8-7.7) 02/19/24 11:22 Lymph # (Auto) 1.4 10^3/uL (0.8-4.8) 02/19/24 11:22 Nicholas # (Auto) 0.6 10^3/uL (0.2-0.9) 02/19/24 11:22 Eos # (Auto) 0.1 10^3/uL (0.0-0.8) 02/19/24 11:22 Baso # (Auto) 0.1 10^3/uL (0.0-0.1) 02/19/24 11:22 Nucleated RBC % (auto) 0 % 02/19/24 11:22 Nucleated RBCs # 0.0 /100WBC 02/19/24 11:22 PT 13.30 SECONDS (12.1-14.9) 02/19/24 11:22 INR 0.98 (0.8-1.2) 02/19/24 11:22 APTT 28.0 SECONDS (23.9-36.7) 02/19/24 11:22 Sodium 137 mmol/L (136-145) 02/19/24 11:22 Potassium 4.0 mmol/L (3.5-5.1) 02/19/24 11:22 Chloride 96 mmol/L (98-107) L 02/19/24 11:22 Carbon Dioxide 30 mmol/L (22-29) H 02/19/24 11:22 Anion Gap 15.0 (5-19) 02/19/24 11:22 BUN 14 mg/dL (6-20) 02/19/24 11:22 Creatinine 1.0 mg/dL (0.7-1.2) 02/19/24 11:22 GFR Calculation 76.7 mL/min (90-130) L 02/19/24 11:22 Glucose 145 mg/dL (65-115) H 02/19/24 11:22 POC Glucose 141 mg/dL (70-110) H 02/19/24 11:30 Calculated Osmolality 287 mOsm/kg (285-295) 02/19/24 11:22 Calcium 9.1 mg/dL (8.5-10.5) 02/19/24 11:22 Total Bilirubin 0.4 mg/dL (0.15-1.2) 02/19/24 11:22 AST 20 U/L (0-40) 02/19/24 11:22 ALT 20 U/L (0-41) 02/19/24 11:22 Alkaline Phosphatase 113 U/L (40-130) 02/19/24 11:22 Total Protein 7.4 g/dL (6.6-8.7) 02/19/24 11:22 Albumin 4.7 g/dL (3.5-5.2) 02/19/24 11:22 Globulin 2.7 g/dL (1.3-4.6) 02/19/24 11:22 Urine Color Yellow (Yellow) 02/19/24 12:01 Urine Appearance Clear (CLEAR) 02/19/24 12:01 Urine pH 6.0 (5-7) 02/19/24 12:01 Ur Specific [place] 1.019 (1.005-1.030) 02/19/24 12:01 Urine Protein Negative (Negative) 02/19/24 12:01 Urine Glucose (UA) Negative (Normal) 02/19/24 12:01 Urine Ketones Negative (Negative) 02/19/24 12:01 Urine Blood Negative (Negative) 02/19/24 12:01 Urine Nitrate Negative (Negative) 02/19/24 12:01 Urine Bilirubin Negative (Negative) 02/19/24 12:01 Urine Urobilinogen 0.2 mg/dL (Negative) 02/19/24 12:01 Ur Leukocyte Esterase Negative (Negative) 02/19/24 12:01 Amorphous Sediment Not Reportable 02/19/24 12:01 All radiology interpretation(s) finalized by discharge Discharge Plan Discharge Patient Disposition: Home Clinical Impression: Facial paresthesia Condition: Stable Prescriptions: No Action metformin 1,000 mg tablet 1,000 mg PO BID Qty: 180 1RF Bariatric Multivitamins 45 mg iron- 800 mcg-120 mcg capsule 1 cap PO DAILY (DME) abdominal binder See Rx Instructions .Route .MEDSUPPLY Qty: 1 0RF Rx Instructions: As directed diclofenac sodium [Voltaren Arthritis Pain] 1 % gel 4 g topical QID Qty: 100 0RF Rx Instructions: apply to finger furosemide 40 mg tablet 40 mg PO DAILY Qty: 90 1RF potassium chloride 20 mEq tablet extended release 20 meq PO DAILY Qty: 90 1RF (DME) intraoperative neurophysiological monitoring See Rx Instructions .Route .MEDSUPPLY Qty: 1 0RF Rx Instructions: As directed valsartan-hydrochlorothiazide 320-12.5 mg tablet 1 tab PO DAILY Qty: 90 1RF (DME) Syringe 1.5'', 25 gauge See Rx Instructions .Route .MEDSUPPLY Qty: 12 3RF Rx Instructions: As directed bupropion HCl 300 mg tablet extended release 24 hr 300 mg PO QAM Qty: 90 1RF duloxetine 60 mg capsule, delayed rel sprinkle 60 mg PO DAILY Qty: 90 1RF rosuvastatin 10 mg tablet 10 mg PO DAILY Qty: 90 1RF trazodone 50 mg tablet 50 mg PO DAILY Qty: 90 0RF verapamil 180 mg tablet extended release 180 mg PO DAILY Qty: 90 1RF cyanocobalamin (vitamin B-12) [Dodex] 1,000 mcg/mL solution 1,000 mcg IM .COMPLEX Qty: 25 1RF Rx Instructions: 1,000 mcg intramuscularly every 2 weeks; Discharge Orders: Discharge ED (Routine); Ordered 02/19/24 Ordered By: Meghan Patel Referrals: Jimmy Quinteros MD [Primary Care Provider] - Discharge Diet: Usual diet Discharge Activity: Resume usual activity Patient Instructions: Paresthesia (ED) Activity Restrictions/Additional Instructions: Please follow-up with your primary provider early next week and consider an MRI if symptoms have persisted. Please take a full-strength aspirin daily until instructed otherwise by your primary provider Thank you for choosing [facility] for your healthcare needs today. Please realize this is an emergency room and that we are providing you with a medical screening exam and this may not be complete and all inclusive of all the testing and or work up that you may need to determine your ailment or severity of your illness. You have been screened and evaluated and felt safe for discharge. Health conditions do change or evolve sometimes and as such it is important that you follow up with your Primary Doctor to be re checked, 3-5 days is a general good time frame for follow up. You are always welcome to return to the ED for re assessment if your symptoms are worsening or you have new concerns Coding Level of Care Code ED Diesel Engine Inspector for Gwyn Morris
--- NOTE | 2024-02-19 11:13 | CTR_ITS ---
PROCEDURE INFORMATION: Exam: CT Head Without Contrast Exam date and time: 02/19/2024 11:11 AM Age: 58 years old Clinical indication: Stroke-like symptoms; Visual disturbance; Other: Left side of mouth and eye numbness/paresthesia; Additional info: Possible stroke TECHNIQUE: Imaging protocol: Computed tomography of the head without contrast. Radiation optimization: All CT scans at this facility use at least one of these dose optimization techniques: automated exposure control; mA and/or kV adjustment per patient size (includes targeted exams where dose is matched to clinical indication); or iterative reconstruction. Other technique: STROKE PROTOCOL was implemented. COMPARISON: No relevant prior studies available. RADIATION DOSE METRICS: Total DLP (mGy-cm): 1203.38 FINDINGS: Brain: 9 mm circumscribed hyperdense extra-axial lesion adjacent to the right temporal-parietal lobe sulci above the sylvian fissure probably representing a small meningioma. No appreciable mass effect. Cortical sulci are otherwise unremarkable. No compelling evidence of acute infarct. No evidence of intra cerebral hemorrhage. Cerebral ventricles: Unremarkable for age. Paranasal sinuses: Small polyp retention cyst right maxillary sinus otherwise paranasal sinuses are clear. Mastoid air cells: Visualized mastoid air cells are well aerated. Bones: Unremarkable. No acute fracture. Soft tissues: Unremarkable. CT/CT head wo con* [id number] IMPRESSION: 1. No acute intracranial abnormalities. 2. 9 mm meningioma adjacent to the right temporoparietal lobe. Recommend follow-up nonemergent contrast enhanced MRI examination of the brain for confirmation. ASSESSMENT: ASPECTS ([place] Stroke Program Early CT Score) is 10.
--- NOTE | 2024-02-19 11:13 | CTR_ITS ---
PROCEDURE INFORMATION: Exam: CTA Head With Contrast, Arteriography Exam date and time: 02/19/2024 11:19 AM Age: 58 years old Clinical indication: Other: Left side of mouth numbness and left eye; Additional info: Possible stroke TECHNIQUE: Imaging protocol: Computed tomographic angiography of the head with contrast. Exam focused on the arteries. 3D rendering (Not supervised by radiologist): MIP and/or 3D reconstructed images were created by the technologist. Radiation optimization: All CT scans at this facility use at least one of these dose optimization techniques: automated exposure control; mA and/or kV adjustment per patient size (includes targeted exams where dose is matched to clinical indication); or iterative reconstruction. Contrast material: OMNI 350; Contrast volume: 100 ml; Contrast route: INTRAVENOUS (IV); COMPARISON: CT head wo con* [id number] 02/19/2024 11:11 AM RADIATION DOSE METRICS: Total DLP (mGy-cm): 536.02 FINDINGS: ANTERIOR CIRCULATION: Right internal carotid artery: Intracranial segment is patent with no significant stenosis. No aneurysm. Right middle cerebral artery: No occlusion or significant stenosis. No aneurysm. Right anterior cerebral artery: No occlusion or significant stenosis. No aneurysm. Left internal carotid artery: Intracranial segment is patent with no significant stenosis. No aneurysm. Left middle cerebral artery: No occlusion or significant stenosis. No aneurysm. Left anterior cerebral artery: No occlusion or significant stenosis. No aneurysm. POSTERIOR CIRCULATION: Right vertebral artery: No occlusion or significant stenosis. No aneurysm. Left vertebral artery: No occlusion or significant stenosis. No aneurysm. Basilar artery: No occlusion or significant stenosis. No aneurysm. Right posterior cerebral artery: No occlusion or significant stenosis. No aneurysm. Left posterior cerebral artery: No occlusion or significant stenosis. No aneurysm. Brain: Redemonstration of 9 mm hyperdense extra-axial lesion adjacent to the right temporoparietal lobe. No other focal abnormalities detected. Cerebral ventricles: No ventriculomegaly. Bones/joints: Unremarkable. No acute fracture. Soft tissues: Unremarkable. PROCEDURE INFORMATION: Exam: CTA Neck With Contrast Exam date and time: 02/19/2024 11:19 AM Age: 58 years old Clinical indication: Other: Left side of mouth numbness and left eye; Additional info: Possible stroke TECHNIQUE: Imaging protocol: Computed tomographic angiography of the neck with contrast. Exam focused on the cervical segments of the vasculature. 3D rendering (Not supervised by radiologist): MIP and/or 3D reconstructed images were created by the technologist. Radiation optimization: All CT scans at this facility use at least one of these dose optimization techniques: automated exposure control; mA and/or kV adjustment per patient size (includes targeted exams where dose is matched to clinical indication); or iterative reconstruction. Contrast material: OMNI 350; Contrast volume: 100 ml; Contrast route: INTRAVENOUS (IV); COMPARISON: CT head wo con* [id number] 02/19/2024 11:11 AM RADIATION DOSE METRICS: Total DLP (mGy-cm): 536.02 FINDINGS: Right common carotid artery: No stenosis. No dissection or occlusion. Right internal carotid artery: No stenosis of the extracranial segment. No dissection or occlusion. Right external carotid artery: No occlusion or stenosis of the origin. Left common carotid artery: No stenosis. No dissection or occlusion. Left internal carotid artery: No stenosis of the extracranial segment. No dissection or occlusion. Left external carotid artery: No occlusion or stenosis of the origin. Right vertebral artery: No stenosis. No dissection or occlusion. Left vertebral artery: Left vertebral artery is hypoplastic but patent. Soft tissues: Normal. No significant soft tissue swelling. Bones/joints: Moderate degenerative changes lower cervical spine. No acute bony abnormalities. Lungs: Lung apices are unremarkable. CT/CT angio headneck* [id number] IMPRESSION: 1. No large vessel occlusion or major branch stenosis. 2. Redemonstration of 9 mm hyperdense extra-axial mass right temporoparietal lobe presumed to represent a small meningioma IMPRESSION: 1. No evidence of carotid stenosis or occlusion. 2. Congenitally hypoplastic left vertebral artery. REFERENCES: NASCET CRITERIA. The degree of stenosis in the cervical segment of the internal carotid artery is based on NASCET criteria. Normal is no stenosis. Mild is less than 50% stenosis. Moderate is 50-69% stenosis. Severe is 70% to 99% stenosis. Total occlusion is no detectable patent lumen.
[2024-02-19] MEDS: iohexol 350 mg/mL 500 mL Btl (per mL) IV (11:27)
--- NOTE | 2024-02-19 11:31 | ECG_ITS ---
[facility] Test Date: 2024-02-19 Pat Name: Wilmer Sanchez Department: Room: Gender: Male Commissions Analyst: : 1965 Requested By: Meghan Smith Order Number: [id number] Martin MD: SANJUANA RODRIGUES Measurements Intervals [place] Rate: 83 P: 50 DE: 159 QRS: 42 QRSD: 102 T: 34 QT: 351 QTc: 414 Interpretive Statements SINUS RHYTHM Compared to ECG 04/23/2023 06:02:54 Sinus tachycardia no longer present T-wave abnormality no longer present Electronically Signed On 02-19-2024 18:08:01 CDT by SANJUANA RODRIGUES [email or web address]
[2024-02-19 11:40] LABS: Glucose Point of Care 141 mg/dL (70-110)
[2024-02-19 11:56] LABS: INR 0.98 (0.8-1.2)
[2024-02-19 12:00] VITALS: BP 131/76; PULSE 93; RESP 14; O2SAT 100
[2024-02-19 12:15] VITALS: BP 131/76; PULSE 95; RESP 24; O2SAT 97
[2024-02-19 12:23] LABS: Basophils # 0.1 10^3/uL (0.0-0.1); Eosinophils # 0.1 10^3/uL (0.0-0.8); Eosinophils % 1.6 %; Hematocrit 46.6 % (37-53); Lymphocytes # 1.4 10^3/uL (0.8-4.8); Lymphocytes % 24.6 %; Mean Corpuscular HGB Conc 31.3 g/dL (30-55); Mean Corpuscular Hemoglobin 25.7 pg (27-33); Mean Platelet Volume 9.6 fL (7.4-10.4); Monocytes # 0.6 10^3/uL (0.2-0.9); Monocytes % 10.7 %; Neutrophils # 3.57 10^3/uL (1.8-7.7); Neutrophils % 61.8 %; Nucleated Red Blood Cells % 0 %; Platelet Count 315 10^3/cmm (157-399); Red Blood Count 5.68 10^6/uL (3.85-5.65); Red Cell Distribution Width 20.7 % (12.1-15.1); White Blood Count 5.78 10^3/uL (3.29-11.43)
[2024-02-19 12:30] VITALS: BP 131/76; PULSE 84; RESP 16; O2SAT 100
[2024-02-19 12:34] LABS: Alanine Aminotransferase 20 U/L (0-41); Albumin Level 4.7 g/dL (3.5-5.2); Alkaline Phosphatase 113 U/L (40-130); Aspartate Amino Transferase 20 U/L (0-40); Blood Urea Nitrogen 14 mg/dL (6-20); Calcium 9.1 mg/dL (8.5-10.5); Carbon Dioxide 30 mmol/L (22-29); Chloride 96 mmol/L (98-107); Globulin 2.7 g/dL (1.3-4.6); Glomerular Filtration Rate 76.7 mL/min (90-130); Glucose 145 mg/dL (65-115); Osmolality Calculated 287 mOsm/kg (285-295); Sodium 137 mmol/L (136-145); Total Bilirubin 0.4 mg/dL (0.15-1.2); Total Protein 7.4 g/dL (6.6-8.7)
[2024-02-19 12:45] VITALS: BP 131/76; PULSE 85; RESP 21; O2SAT 97
[2024-02-19 12:53] LABS: Bilirubin Urine Negative (Negative); Blood Urine Negative (Negative); Glucose Urine UA Negative (Normal); Ketones Urine Negative (Negative); Leukocyte Esterase Urine Negative (Negative); Nitrate Urine Negative (Negative); Protein Urine Negative (Negative); Specific Gravity, Urine 1.019 (1.005-1.030); Urine Appearance Clear (CLEAR); Urine Color Yellow (Yellow); Urobilinogen Urine 0.2 mg/dL (Negative)
[2024-02-19 12:58] LABS: Bacteria Urine None Seen /hpf; Hyaline Casts Urine 4.52 /lpf; RBC Urine 0-2 /hpf (0-2); Squamous Epithelial Cell Urine 0-5 /hpf (0-5); WBC Urine 0-5 /hpf (0-5)
[2024-02-19 13:05] VITALS: BP 131/76; PULSE 90; O2SAT 100
== END 2024-02-19 13:07 | disposition home or self-care (01) ==
PROVIDERS: Emergency Provider Emergency Medicine; PCP Family Medicine
DX: R20.2 Paresthesia of skin (principal); E11.9 Type 2 diabetes mellitus without complications; I10 Essential (primary) hypertension; Z79.84 Long term (current) use of oral hypoglycemic drugs; Z87.891 Personal history of nicotine dependence
CPT/HCPCS: 36416; 70450; 70496; 70498; 80053; 81001; 82962; 85025; 85610; 85730; 93005; 99285

== ENCOUNTER 2024-04-07 09:01 | Oncology outpatient (recurring) (ONCR) | payer OTHER, SELFPAY ==
[2024-04-07 09:27] LABS: Basophils # 0.1 10^3/uL (0.0-0.1); Basophils % 1.1 %; Eosinophils # 0.1 10^3/uL (0.0-0.8); Eosinophils % 1.9 %; Hematocrit 45.7 % (37-53); Lymphocytes # 1.4 10^3/uL (0.8-4.8); Mean Corpuscular HGB Conc 32.4 g/dL (30-55); Mean Corpuscular Hemoglobin 26.9 pg (27-33); Mean Corpuscular Volume 83.1 fl (82-101); Mean Platelet Volume 9.1 fL (7.4-10.4); Monocytes # 0.6 10^3/uL (0.2-0.9); Monocytes % 10.5 %; Neutrophils % 59.1 %; Nucleated Red Blood Cells % 0 %; Platelet Count 261 10^3/cmm (157-399); Red Cell Distribution Width 18.5 % (12.1-15.1); White Blood Count 5.25 10^3/uL (3.29-11.43)
[2024-04-07 09:43] LABS: Alanine Aminotransferase 21 U/L (0-41); Albumin Level 4.3 g/dL (3.5-5.2); Alkaline Phosphatase 103 U/L (40-130); Anion Gap 12.9 (5-19); Aspartate Amino Transferase 17 U/L (0-40); Blood Urea Nitrogen 17 mg/dL (6-20); Calcium 9.3 mg/dL (8.5-10.5); Carbon Dioxide 30 mmol/L (22-29); Chloride 98 mmol/L (98-107); Creatinine Clr Calc Pharmacy 110.4728; Globulin 2.6 g/dL (1.3-4.6); Glomerular Filtration Rate 76.5 mL/min (90-130); Glucose 133 mg/dL (65-115); Osmolality Calculated 287 mOsm/kg (285-295); Potassium 3.9 mmol/L (3.5-5.1); Sodium 137 mmol/L (136-145); Total Bilirubin 0.3 mg/dL (0.15-1.2); Total Protein 6.9 g/dL (6.6-8.7)
[2024-04-07 14:33] LABS: Ferritin 54 ng/mL (30-400); Iron 96 ug/dL (59-158); Percent Saturation 30.9 % (20-50); Total Iron Binding Capacity 310 mcg/dl; Unsaturated Iron Binding 214 ug/dL (112-347)
== END 2024-05-02 23:59 | disposition home or self-care (01) ==
PROVIDERS: PCP Family Medicine; Visit Provider Nurse Practitioner Family
DX: Z79.899 Other long term (current) drug therapy; E61.1 Iron deficiency
CPT/HCPCS: 36415; 80053; 82728; 83540; 83550; 85025; 99213

== ENCOUNTER 2024-07-19 09:11 | Oncology outpatient (recurring) (ONCR) | payer MEDICARE, SELFPAY ==
[2024-07-19 09:50] LABS: Basophils # 0.1 10^3/uL (0.0-0.1); Basophils % 0.9 %; Eosinophils # 0.1 10^3/uL (0.0-0.8); Eosinophils % 1.2 %; Hematocrit 47.3 % (37-53); Lymphocytes # 1.8 10^3/uL (0.8-4.8); Lymphocytes % 31.9 %; Mean Corpuscular HGB Conc 32.6 g/dL (30-55); Mean Corpuscular Hemoglobin 28.9 pg (27-33); Mean Corpuscular Volume 88.9 fl (82-101); Mean Platelet Volume 9.2 fL (7.4-10.4); Monocytes # 0.6 10^3/uL (0.2-0.9); Monocytes % 11.1 %; Neutrophils # 3.15 10^3/uL (1.8-7.7); Neutrophils % 54.6 %; Nucleated Red Blood Cells % 0 %; Platelet Count 298 10^3/cmm (157-399); Red Blood Count 5.32 10^6/uL (3.85-5.65); Red Cell Distribution Width 13.2 % (12.1-15.1); White Blood Count 5.77 10^3/uL (3.29-11.43)
[2024-07-19 10:10] LABS: Alanine Aminotransferase 13 U/L (0-41); Albumin Level 4.3 g/dL (3.5-5.2); Alkaline Phosphatase 108 U/L (40-130); Anion Gap 13.8 (5-19); Aspartate Amino Transferase 16 U/L (0-40); Blood Urea Nitrogen 12 mg/dL (6-20); Calcium 9.4 mg/dL (8.5-10.5); Carbon Dioxide 27 mmol/L (22-29); Chloride 100 mmol/L (98-107); Globulin 2.8 g/dL (1.3-4.6); Glomerular Filtration Rate 86.4 mL/min (90-130); Glucose 134 mg/dL (65-115); Iron 126 ug/dL (59-158); Osmolality Calculated 286 mOsm/kg (285-295); Percent Saturation 38.5 % (20-50); Potassium 3.8 mmol/L (3.5-5.1); Sodium 137 mmol/L (136-145); Total Bilirubin 0.4 mg/dL (0.15-1.2); Total Iron Binding Capacity 327 mcg/dl; Total Protein 7.1 g/dL (6.6-8.7); Unsaturated Iron Binding 201 ug/dL (112-347)
== END 2024-07-31 23:59 | disposition home or self-care (01) ==
PROVIDERS: PCP Family Medicine; Visit Provider Nurse Practitioner Family
DX: E61.1 Iron deficiency (principal)
CPT/HCPCS: 36415; 80053; 83540; 83550; 85025

== ENCOUNTER 2024-08-10 10:45 | Oncology outpatient (recurring) (ONCR) | payer MEDICARE, SELFPAY ==
--- NOTE | 2024-08-04 07:15 | MR_ITS ---
WS: [id number] MRI HEAD WITH CONTRAST TECHNIQUE: Sagittal T1, T2 axial, T2 axial FLAIR, axial susceptibility weighted imaging, axial diffusion weighted images, and coronal T2 images were obtained. Pre and post-T1 axial and post T1 coronal images. ADC and FSPGR images. CLINICAL INFORMATION: known meningioma in right temporal/parietal COMPARISON: CT 06/21/2023 FINDINGS: Enhancing meningioma overlying the RIGHT posterior frontal lobe stable since the prior CT. This measures 9 x 7 mm. No evidence of underlying edema or mass effect. No other suspicious intracranial signal abnormalities. Mild parenchymal volume loss. No restricted diffusion to suggest acute ischemia. No hemosiderin. Normal optic chiasm and pituitary infundibulum. Small polyps or retention cysts in the RIGHT maxillary sinus. No other suspicious findings. MR/MR head wo/w con [id number] IMPRESSION: 1. Stable 9 x 7 mm meningioma overlying the RIGHT posterior frontal lobe 2. No evidence of underlying edema or mass effect. 3. No other acute findings.
[2024-08-04] MEDS: gadobenate dimeglumine 20 mL vial IV (07:41)
[2024-08-10 10:32] LABS: Basophils % 0.7 %; Eosinophils # 0.1 10^3/uL (0.0-0.8); Eosinophils % 1.3 %; Hematocrit 47.2 % (37-53); Lymphocytes # 1.5 10^3/uL (0.8-4.8); Lymphocytes % 26.6 %; Mean Corpuscular HGB Conc 32.6 g/dL (30-55); Mean Corpuscular Hemoglobin 28.9 pg (27-33); Mean Corpuscular Volume 88.7 fl (82-101); Mean Platelet Volume 9.4 fL (7.4-10.4); Monocytes # 0.5 10^3/uL (0.2-0.9); Neutrophils % 62.2 %; Nucleated Red Blood Cells % 0 %; Platelet Count 286 10^3/cmm (157-399); Red Blood Count 5.32 10^6/uL (3.85-5.65); Red Cell Distribution Width 12.8 % (12.1-15.1); White Blood Count 5.46 10^3/uL (3.29-11.43)
[2024-08-10 10:33] LABS: Reticulocyte % 0.9 % (0.5-2.0)
[2024-08-10 10:46] LABS: Alanine Aminotransferase 20 U/L (0-41); Albumin Level 4.3 g/dL (3.5-5.2); Alkaline Phosphatase 94 U/L (40-130); Anion Gap 14.9 (5-19); Aspartate Amino Transferase 17 U/L (0-40); Blood Urea Nitrogen 19 mg/dL (6-20); Calcium 9.4 mg/dL (8.5-10.5); Carbon Dioxide 27 mmol/L (22-29); Chloride 100 mmol/L (98-107); Creatinine Clr Calc Pharmacy 123.6545; Ferritin 33 ng/mL (30-400); Globulin 2.9 g/dL (1.3-4.6); Glomerular Filtration Rate 86.4 mL/min (90-130); Glucose 125 mg/dL (65-115); Iron 125 ug/dL (59-158); Lactate Dehydrogenase 121 U/L (135-225); Osmolality Calculated 290 mOsm/kg (285-295); Percent Saturation 37.7 % (20-50); Potassium 3.9 mmol/L (3.5-5.1); Sodium 138 mmol/L (136-145); Total Bilirubin 0.3 mg/dL (0.15-1.2); Total Iron Binding Capacity 331 mcg/dl; Total Protein 7.2 g/dL (6.6-8.7); Unsaturated Iron Binding 206 ug/dL (112-347)
[2024-08-10 11:02] LABS: Vitamin B12 1182 pg/mL (232-1245)
[2024-08-10 11:10] LABS: Folate Level 19.4 ng/mL (4.5-32.2)
== END 2024-08-30 23:59 | disposition home or self-care (01) ==
PROVIDERS: Internal Medicine; PCP Family Medicine; Visit Provider Nurse Practitioner Family
DX: D50.8 Other iron deficiency anemias (principal); E53.8 Deficiency of other specified B group vitamins; D32.0 Benign neoplasm of cerebral meninges; R41.3 Other amnesia; I10 Essential (primary) hypertension; E11.9 Type 2 diabetes mellitus without complications; G47.33 Obstructive sleep apnea (adult) (pediatric); F41.8 Other specified anxiety disorders; M19.90 Unspecified osteoarthritis, unspecified site; M54.9 Dorsalgia, unspecified; G89.29 Other chronic pain; Z98.84 Bariatric surgery status
CPT/HCPCS: 36415; 70553; 80053; 82607; 82728; 82746; 83010; 83540; 83550; 83615; 85025; 85045; 99213; A9577

== ENCOUNTER 2024-08-31 10:52 | Oncology outpatient (recurring) (ONCR) | payer MEDICARE, SELFPAY | END 2024-09-30 23:59 | disposition home or self-care (01) | LOC: ONCMED 10:55 | PROVIDERS: PCP Family Medicine; Visit Provider Internal Medicine | DX: D50.8 Other iron deficiency anemias (principal); E53.8 Deficiency of other specified B group vitamins; D32.0 Benign neoplasm of cerebral meninges; R41.3 Other amnesia; I10 Essential (primary) hypertension; E11.9 Type 2 diabetes mellitus without complications; G47.33 Obstructive sleep apnea (adult) (pediatric); F41.8 Other specified anxiety disorders; M19.90 Unspecified osteoarthritis, unspecified site; M54.9 Dorsalgia, unspecified; G89.29 Other chronic pain; Z98.84 Bariatric surgery status; D32.9 Benign neoplasm of meninges, unspecified | CPT/HCPCS: 99213 ==

== ENCOUNTER → 2024-10-26 08:40 | Outpatient (BNVA) | payer MEDICARE, SELFPAY | PROVIDERS: PCP Family Medicine; Visit Provider Family Medicine | DX: E11.9 Type 2 diabetes mellitus without complications (principal) | CPT/HCPCS: 80053; 80061; 83036; 84439; 84443; 85025 ==

== ENCOUNTER 2024-11-01 08:15 | Oncology outpatient (recurring) (ONCR) | payer MEDICARE, SELFPAY ==
--- NOTE | 2024-11-01 10:30 | USR_ITS ---
PROCEDURE INFORMATION: Exam: US Duplex Bilateral Lower Extremity Arteries Exam date and time: 11/01/2024 8:47 AM Age: 59 years old Clinical indication: Condition or disease; Other: Pad; Additional info: Pad, attain sam's TECHNIQUE: Imaging protocol: Real-time ultrasound scan of the arteries of the bilateral lower extremities with 2-D humphrey scale, color Doppler flow and spectral waveform analysis. Images documented and saved. COMPARISON: No relevant prior studies available. FINDINGS: Right common femoral artery: No occlusion or significant stenosis. Normal waveform. Right superficial femoral artery: No occlusion or significant stenosis. Normal waveform. Right popliteal artery: No occlusion or significant stenosis. Normal waveform. Right calf/foot arteries: No occlusion or significant stenosis. Normal waveforms. Normal right SAM of 1.05. Left common femoral artery: No occlusion or significant stenosis. Normal waveform. Left superficial femoral artery: No occlusion or significant stenosis. Normal waveform. Left popliteal artery: No occlusion or significant stenosis. Normal waveform. Left calf/foot arteries: No occlusion or significant stenosis. Normal waveforms. Normal left SAM of 1.1. US/CV arterial duplex [facility] [id number] IMPRESSION: No evidence of arterial insufficiency in either lower extremity.
== END 2024-11-30 23:59 | disposition home or self-care (01) ==
LOC: ONCMED 08:16
PROVIDERS: PCP Family Medicine; Visit Provider Internal Medicine
DX: D50.8 Other iron deficiency anemias (principal); E53.8 Deficiency of other specified B group vitamins; D32.0 Benign neoplasm of cerebral meninges; R41.3 Other amnesia; I10 Essential (primary) hypertension; E11.9 Type 2 diabetes mellitus without complications; G47.33 Obstructive sleep apnea (adult) (pediatric); F41.8 Other specified anxiety disorders; M19.90 Unspecified osteoarthritis, unspecified site; M54.9 Dorsalgia, unspecified; G89.29 Other chronic pain; Z98.84 Bariatric surgery status; D32.9 Benign neoplasm of meninges, unspecified; Z79.899 Other long term (current) drug therapy; I73.9 Peripheral vascular disease, unspecified
CPT/HCPCS: 93925

== ENCOUNTER 2024-12-26 11:52 | Outpatient (CLI) | payer MEDICARE, SELFPAY ==
--- NOTE | 2024-12-26 11:55 | XR_ITS ---
WS: [email or web address] Exam: XR foot RT min 3V* [id number] Date/Time of Exam: 12/26/2024 11:57 AM Reason For Exam: PAIN No fracture or bone destruction. Degenerative changes in the IP joints, first MP joint and midfoot joints. No soft tissue foreign bodies are seen. Plantar heel spur. Thickening of the Achilles tendon. IMPRESSION1. Degenerative changes. No fracture or bone destruction. Additional minor findings.
--- NOTE | 2024-12-26 11:55 | XR_ITS ---
WS: [email or web address] Exam: XR tibia fibula LT 2V [id number] Date/Time of Exam: 12/26/2024 11:57 AM Reason For Exam: Pain DLP: No fracture identified. Total knee replacement is noted. No obvious complication. Normal soft tissues. XR/XR tibia fibula LT 2V [id number] IMPRESSION: 1. No fracture or other significant finding.
--- NOTE | 2024-12-26 11:55 | XR_ITS ---
WS: [email or web address] Exam: XR femur LT min 2V* [id number] Date/Time of Exam: 12/26/2024 11:57 AM Reason For Exam: Pain No fracture identified. 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 Normal soft tissues. LEFT total knee replacement appears to be intact as visualized. Fusion hardware in the SI joints. IMPRESSION1. LEFT femur showing no fracture or other significant finding.
--- NOTE | 2024-12-26 11:55 | XR_ITS ---
WS: [email or web address] Exam: XR ankle RT min 3V* [id number] Date/Time of Exam: 12/26/2024 11:57 AM Reason For Exam: Pain No fracture identified. The ankle mortise is intact. Mild lateral soft tissue swelling. XR/XR ankle RT min 3V* [id number] IMPRESSION: 1. Mild lateral soft tissue swelling. No fracture.
== END 2024-12-26 11:53 | disposition home or self-care (01) ==
PROVIDERS: PCP Family Medicine; Visit Provider Nurse Practitioner
DX: M19.071 Primary osteoarthritis, right ankle and foot (principal); M77.31 Calcaneal spur, right foot; M76.61 Achilles tendinitis, right leg; M87.852 Other osteonecrosis, left femur; Z96.652 Presence of left artificial knee joint; R22.41 Localized swelling, mass and lump, right lower limb
CPT/HCPCS: 73552; 73590; 73610; 73630

== ENCOUNTER 2025-01-04 11:51 | Oncology outpatient (recurring) (ONCR) | payer MEDICARE, SELFPAY ==
[2025-01-04 12:17] LABS: Hematocrit 44.5 % (37-53); Hemoglobin 14.80 g/dL (11.27-16.99); Mean Corpuscular HGB Conc 33.3 g/dL (30-55); Mean Corpuscular Hemoglobin 28.9 pg (27-33); Mean Corpuscular Volume 86.9 fl (82-101); Nucleated Red Blood Cells % 0 %; Platelet Count 313 10^3/cmm (157-399); Red Blood Count 5.12 10^6/uL (3.85-5.65); White Blood Count 6.80 10^3/uL (3.29-11.43)
[2025-01-04 12:37] LABS: Alanine Aminotransferase 17 U/L (0-41); Albumin Level 4.4 g/dL (3.5-5.2); Alkaline Phosphatase 97 U/L (40-130); Anion Gap 17.1 (5-19); Aspartate Amino Transferase 21 U/L (0-40); Blood Urea Nitrogen 17 mg/dL (6-20); Calcium 9.4 mg/dL (8.5-10.5); Carbon Dioxide 28 mmol/L (22-29); Chloride 99 mmol/L (98-107); Creatinine Clr Calc Pharmacy 93.0814; Ferritin 34 ng/mL (30-400); Globulin 2.9 g/dL (1.3-4.6); Glucose 107 mg/dL (65-115); Iron 64 ug/dL (59-158); Osmolality Calculated 292 mOsm/kg (285-295); Potassium 4.1 mmol/L (3.5-5.1); Sodium 140 mmol/L (136-145); Total Iron Binding Capacity 341 mcg/dl; Total Protein 7.3 g/dL (6.6-8.7); Unsaturated Iron Binding 277 ug/dL (112-347)
[2025-01-04 12:52] LABS: Vitamin B12 838 pg/mL (232-1245)
== END 2025-01-30 23:59 | disposition home or self-care (01) ==
PROVIDERS: PCP Family Medicine; Visit Provider Internal Medicine
DX: D50.8 Other iron deficiency anemias (principal); E53.8 Deficiency of other specified B group vitamins; D32.0 Benign neoplasm of cerebral meninges; Z98.84 Bariatric surgery status; Z79.899 Other long term (current) drug therapy
CPT/HCPCS: 36415; 80053; 82607; 82728; 82746; 83010; 83540; 83550; 83615; 85025; 99213